=== PATIENT | male | born 1985 | race Caucasian/White ===

== ENCOUNTER → 2022-02-04 12:11 | Outpatient (CLI) | payer OTHER, SELFPAY ==
--- NOTE | ~2022-02-04 | MR_ITS ---
EXAMINATION: MR lumbar spine wo con DATE: 02/04/2022 13:00 INDICATION: Mid back pain. Scoliosis of spine. TECHNIQUE: Magnetic resonance imaging (MRI) of the lumbar spine was performed without intravenous con trast. Sequences included sagittal T2-weighted FSE, sagittal T2-weighted FS FSE, sagittal T1-weighted FSE, and axial T2-weighted FSE. COMPARISON: None FINDINGS: There is 8 degrees levocurvature of thoracolumbar spine. There are Schmorl's nodes at L2-L3 . There is mildly decreased disc height at L2-L3 and L4-L5. The distal spinal cord signal intensity i s normal. The conus medullaris is at T12-L1. The following disc levels are specifically discussed: L1-L2: The disc does not extend beyond the endplate margin. There is no facet joint osteoarthritis. T here is no neural foraminal stenosis. There is no central canal stenosis. L2-L3: The disc is mildly bulging. There is no facet joint osteoarthritis. There is no neural foramin al stenosis. There is mild central canal stenosis. L3-L4: The disc does not extend beyond the endplate margin. There is no facet joint osteoarthritis. T here is no neural foraminal stenosis. There is no central canal stenosis. L4-L5: The disc is bulging and has an annular fissure. There is no facet joint osteoarthritis. There is mild bilateral neural foraminal stenosis. There is mild central canal stenosis. L5-S1: The disc does not extend beyond the endplate margin. There is mild left facet joint osteoarthr itis. There is no neural foraminal stenosis. There is no central canal stenosis. IMPRESSION: 1. Mild lumbar spondylosis. Reviewed, dictated and finalized at location A. IMPRESSION: 1. Mild lumbar spondylosis.
--- NOTE | ~2022-02-04 | MR_ITS ---
EXAMINATION: MR thoracic spine wo con DATE: 02/04/2022 12:54 INDICATION: Scoliosis of thoracic spine. Mid back pain. TECHNIQUE: Magnetic resonance imaging (MRI) of the thoracic spine was performed without intravenous c ontrast. Sagittal localizer T1-weighted FSE of the cervical spine was obtained. Thoracic spine sequen idalia included sagittal T2-weighted FSE, sagittal T1-weighted FSE, sagittal T2-weighted FS FSE, and axi al T2-weighted FSE. COMPARISON: None FINDINGS: There is 20 degrees dextroscoliosis of thoracic spine. There is mild chronic anterior wedgi ng of T11 and T12 vertebral bodies, likely physiologic. Intervertebral disc heights are normal. The e ndplates do not extend beyond the endplate margins. There is multilevel mild facet joint osteoarthrit is. At T9-T10 on the left, there is severe facet joint osteoarthritis and mild neural foraminal steno sis. There is no central canal stenosis. At T4, there is focal enlargement of the spinal cord with in creased T2-weighted signal intensity. The abnormality spans 2.4 cm craniocaudal and expands the cord to 13 x 11 mm transverse. IMPRESSION: 1. Focal enlargement and abnormal signal intensity in the spinal cord at T4, which may be myelomalaci a with syrinx. Thoracic spine MRI without and with contrast is recommended to exclude neoplasm. 2. Thoracic dextroscoliosis. Reviewed, dictated and finalized at location A. IMPRESSION: 1. Focal enlargement and abnormal signal intensity in the spinal cord at T4, wh ich may be myelomalacia with syrinx. Thoracic spine MRI without and with contra st is recommended to exclude neoplasm. 2. Thoracic dextroscoliosis.
== END ==
PROVIDERS: PCP Nurse Practitioner Adult Health; Visit Provider Nurse Practitioner Adult Health
DX: M41.34 Thoracogenic scoliosis, thoracic region (principal); M47.896 Other spondylosis, lumbar region
CPT/HCPCS: 72146; 72148

== ENCOUNTER → 2022-02-19 13:50 | Outpatient (CLI) | payer OTHER, SELFPAY ==
--- NOTE | ~2022-02-19 | MR_ITS ---
EXAMINATION: MR thoracic spine wo/w con DATE: 02/19/2022 14:46 INDICATION: Scoliosis of thoracic spine. Back pain. TECHNIQUE: Magnetic resonance imaging (MRI) of the thoracic spine was performed without and with 14 m L MultiHance intravenous contrast. Sequences included sagittal and axial T2-weighted FSE, sagittal T2 -weighted FS FSE, and sagittal and axial T1-weighted FSE. Postcontrast sequences included sagittal an d axial T1-weighted FS FSE. COMPARISON: Thoracic spine MRI 02/04/2022 FINDINGS: There is 17 degrees dextroscoliosis of thoracic spine. There is mild chronic anterior wedgi ng of T11 and T12 vertebral bodies, likely physiologic. Intervertebral disc heights are normal. There is multilevel mild facet joint osteoarthritis. At T9-T10 on the left, there is severe facet joint os teoarthritis and mild neural foraminal stenosis. No central canal stenosis. At T4, there is focal enl argement of the spinal cord with increased T2-weighted signal intensity. The abnormality spans 2.4 cm craniocaudal and expands the cord to 13 x 11 mm transverse. There is thin contrast enhancement at th e margin of a cyst-like portion of the abnormality. IMPRESSION: 1. Focal enlargement and abnormal signal intensity in the spinal cord at T4 with thin contrast enhanc ement at the margin of a cyst-like portion of the abnormality. This finding is most likely myelomalac ia with syrinx. Neoplasm cannot be excluded. Reviewed, dictated and finalized at location A. IMPRESSION: 1. Focal enlargement and abnormal signal intensity in the spinal cord at T4 wit h thin contrast enhancement at the margin of a cyst-like portion of the abnorma lity. This finding is most likely myelomalacia with syrinx. Neoplasm cannot be excluded.
[2022-02-19 14:15] LABS: Estimated Glomerular Filt Rate 54
== END ==
PROVIDERS: PCP Nurse Practitioner Adult Health; Visit Provider Nurse Practitioner Adult Health
DX: M41.34 Thoracogenic scoliosis, thoracic region (principal); R93.89 Abnormal findings on diagnostic imaging of other specified body structures
CPT/HCPCS: 72157; A9577

== ENCOUNTER → 2022-04-27 13:38 | Outpatient (CLI) | payer OTHER, SELFPAY ==
--- NOTE | ~2022-04-27 | MR_ITS ---
EXAMINATION: MR cervical spine wo/w con DATE: 04/27/2022 14:48 INDICATION: Mass of spine. TECHNIQUE: Magnetic resonance imaging (MRI) of the cervical spine was performed without and with 14 m L MultiHance intravenous contrast. COMPARISON: Thoracic spine MRI 02/19/2022 FINDINGS: There is 12 degrees levoscoliosis of cervicothoracic spine. Vertebral body heights are norm al. There is mildly decreased disc height at C3-C4 and C4-C5. The spinal cord signal intensity is nor mal in cervical spine. Partially visualized is focal enlargement and increased T2-weighted signal int ensity of the spinal cord at T4. Partially visualized is crescent-shaped contrast enhancement in this area. The following disc levels are specifically discussed: C2-C3: The disc does not extend beyond the endplate margin. There is no uncovertebral joint osteoarth ritis. There is no facet joint osteoarthritis. There is no neural foraminal stenosis. There is no yehuda tral canal stenosis. C3-C4: The disc is bulging. There is mild right uncovertebral joint osteoarthritis. There is mild lizzie ateral facet joint osteoarthritis. There is mild right neural foraminal stenosis. There is mild centr al canal stenosis. C4-C5: There is a central protrusion. There is no uncovertebral joint osteoarthritis. There is mild r ight facet joint osteoarthritis. There is no neural foraminal stenosis. There is no central canal justin nosis. C5-C6: There is a central protrusion. There is mild left uncovertebral joint osteoarthritis. There is mild bilateral facet joint osteoarthritis. There is no neural foraminal stenosis. There is no centra l canal stenosis. C6-C7: There is a central protrusion. There is mild bilateral uncovertebral joint osteoarthritis. The re is mild right facet joint osteoarthritis. There is no neural foraminal stenosis. There is no centr al canal stenosis. C7-T1: The disc does not extend beyond the endplate margin. There is no uncovertebral joint osteoarth ritis. There is no facet joint osteoarthritis. There is no neural foraminal stenosis. There is no yehuda tral canal stenosis. IMPRESSION: 1. Mild cervical spondylosis. 2. Partially visualized expansile enhancing mass of the spinal cord at T4. The differential diagnosis includes myelomalacia with syrinx and neoplasm. Reviewed, dictated and finalized at location A.
--- NOTE | ~2022-04-27 | MR_ITS ---
EXAMINATION: MR lumbar spine wo/w con DATE: 04/27/2022 14:49 INDICATION: Mass of spine. TECHNIQUE: Magnetic resonance imaging (MRI) of the lumbar spine was performed without and with 14 mL MultiHance intravenous contrast. COMPARISON: Lumbar spine MRI 02/04/2022 FINDINGS: There is 5 degrees levocurvature of thoracic lumbar spine. Vertebral body heights are sabiha l. There is mildly decreased disc height at L4-L5. The distal spinal cord signal intensity is normal. The conus medullaris is at T12-L1. The following disc levels are specifically discussed: L1-L2: The disc does not extend beyond the endplate margin. There is no facet joint osteoarthritis. T here is no neural foraminal stenosis. There is no central canal stenosis. L2-L3: The disc does not extend beyond the endplate margin. There is no facet joint osteoarthritis. T here is no neural foraminal stenosis. There is no central canal stenosis. L3-L4: The disc does not extend beyond the endplate margin. There is no facet joint osteoarthritis. T here is no neural foraminal stenosis. There is no central canal stenosis. L4-L5: The disc is bulging with superimposed left subarticular and foraminal zone extrusion with mass effect on left L5 nerve root in left lateral recess. There is mild bilateral facet joint osteoarthri tis. There is mild right and moderate left neural foraminal stenosis. There is mild central canal justin nosis at the midline. There is severe stenosis of left lateral recess. L5-S1: The disc does not extend beyond the endplate margin. There is mild bilateral facet joint osteo arthritis. There is no neural foraminal stenosis. There is no central canal stenosis. IMPRESSION: 1. Worsened extrusion at L4-L5 with mass effect on left L5 nerve root. Reviewed, dictated and finalized at location A.
[2022-04-27 13:59] LABS: Estimated Glomerular Filt Rate > 60
== END ==
PROVIDERS: PCP Nurse Practitioner Adult Health; Visit Provider Nurse Practitioner Gerontology
DX: M89.8X8 Other specified disorders of bone, other site (principal); M51.26 Other intervertebral disc displacement, lumbar region; M47.892 Other spondylosis, cervical region
CPT/HCPCS: 72156; 72158; A9577

== ENCOUNTER 2022-05-20 12:28 | Emergency (ER) | payer OTHER, SELFPAY ==
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
--- NOTE | ~2022-05-20 | XR_ITS ---
EXAMINATION: XR ribs LT 2V DATE: 05/20/2022 13:19 INDICATION: Left lower rib pain. TECHNIQUE: 2 views of the left ribs on 3 radiographs were obtained. COMPARISON: None. FINDINGS: There is no left-sided pneumonia, pleural effusion, or pneumothorax. The heart size is norm al. There are fractures of left anterior ninth and 10th ribs. IMPRESSION: 1. Fractures of left ninth and 10th ribs. Reviewed, dictated and finalized at location A.
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
[2022-05-20 13:55] LABS: Basophils Absolute Auto 0.1 K/mm3 (0.0-0.1); Basophils Percent Auto 0.8 % (0.2-1.2); Eosinophils Absolute Auto 0.3 K/mm3 (0-0.3); Eosinophils Percent Auto 4.5 % (0-4.4); Hematocrit 42.9 % (42.0-52.0); Hemoglobin 14.2 g/dL (14.0-18.0); Immature Granulocyte Absolute 0.03 K/mm3 (0.00-0.031); Immature Granulocyte Percent A 0.4 % (0-0.5); Lymphocytes Absolute Auto 1.88 K/mm3 (0.9-3.2); Lymphocytes Percent Auto 25.5 % (18.3-44.2); Mean Corpuscular HGB Conc 33.1 g/dl (32-36); Mean Corpuscular Hemoglobin 29.8 pg (26-34); Mean Corpuscular Volume 89.9 fl (80-100); Mean Platelet Volume 9.8 fl (7.4-10.4); Monocytes Absolute Auto 0.9 K/mm3 (0.1-0.6); Monocytes Percent Auto 11.9 % (2.6-8.5); Neutrophils Absolute Auto 4.2 K/mm3 (1.3-6.7); Neutrophils Percent Auto 56.9 % (45.5-73.1); Platelet Count Result 216 k/mm3 (150-375); Red Blood Count 4.77 M/mm3 (4.6-6.20); Red Cell Distribution Width 11.9 % (11.5-14.5); White Blood Count 7.4 K/mm3 (4.5-10.0)
[2022-05-20 14:33] LABS: Alanine Aminotransferase 39 U/L (6-50); Albumin Level 4.5 g/dL (3.5-5.1); Alkaline Phosphatase 36 U/L (38-126); Anion Gap 9 mmol/L (8-16); Aspartate Amino Transferase 43 U/L (17-59); Bilirubin,Total 0.4 mg/dL (0.2-1.3); Blood Urea Nitrogen 20 mg/dL (9-20); Calcium 9.7 mg/dL (8.4-10.2); Carbon Dioxide 25 mmol/L (22-30); Chloride 106 mmol/L (98-107); Estimated CRCL calculation 0 ml/min; Estimated Glomerular Filt Rate > 60; Glucose 104 mg/dL (65-110); Potassium 3.9 mmol/L (3.4-5.0); Sodium 140 mmol/L (137-145)
--- NOTE | 2022-05-20 14:56 | PC.NURSE ---
pt. to ct
[2022-05-20 15:45] VITALS: BP 136/87; PULSE 89; RESP 19; O2SAT 97
== END 2022-05-20 15:45 | disposition home or self-care (01) ==
PROVIDERS: Emergency Provider Nurse Practitioner Family; PCP Nurse Practitioner Adult Health
DX: S22.42XA Multiple fractures of ribs, left side, initial encounter for closed fracture (principal); S60.222A Contusion of left hand, initial encounter; R10.9 Unspecified abdominal pain; V89.2XXA Person injured in unspecified motor-vehicle accident, traffic, initial encounter
CPT/HCPCS: 36415; 71100; 71260; 73110; 73130; 74177; 80053; 85025; 99284; Q9967

== ENCOUNTER → 2023-02-09 09:45 | Outpatient (CLI) | payer OTHER, SELFPAY ==
--- NOTE | ~2023-02-09 | MR_ITS ---
EXAMINATION: MR thoracic spine wo/w con DATE: 02/09/2023 10:37 INDICATION: Spinal cord lesion. TECHNIQUE: Magnetic resonance imaging (MRI) of the thoracic spine was performed without and with 14 m L MultiHance intravenous contrast. COMPARISON: Thoracic spine MRI 02/19/2022 FINDINGS: There is 14 degrees dextroscoliosis of thoracic spine. Vertebral body heights and intervert ebral disc heights are normal. There is multilevel mild to moderate facet joint osteoarthritis. There are right foraminal extrusions at T8-T9 and T10-T11 with mild neural foraminal stenosis. There are l eft foraminal extrusions at T6-T7 and T7-T8 with mild neural foraminal stenosis. No central canal justin nosis. At T4, there is focal enlargement of the spinal cord with increased T2-weighted signal intensi ty. No contrast enhancement. The abnormality spans 2.4 cm craniocaudal and expands the cord to 13 x 1 0 mm transverse. IMPRESSION: 1. Focal enlargement and abnormal signal intensity in the spinal cord at T4 without change in size. T his finding is most likely myelomalacia with syrinx. Reviewed, dictated and finalized at location A. IMPRESSION: 1. Focal enlargement and abnormal signal intensity in the spinal cord at T4 wit hout change in size. This finding is most likely myelomalacia with syrinx.
== END ==
PROVIDERS: PCP Neurological Surgery; Visit Provider Neurological Surgery
DX: G95.9 Disease of spinal cord, unspecified (principal)
CPT/HCPCS: 72157; A9577

== ENCOUNTER → 2023-10-13 08:40 | Outpatient (CLI) | payer OTHER, SELFPAY ==
--- NOTE | ~2023-10-13 | MR_ITS ---
MRI of the thoracic spine Clinical History: Spinal cord lesion Technique: Axial T2-weighted and gradient images, and sagittal T1-weighted, T2-weighted, and STIR prashant ges were acquired. Following intravenous administration of 15 cc MultiHance gadolinium, T1-weighted f at-sat imaging was performed in the axial and sagittal planes. COMPARISON: 02/09/2023 Findings: There is no fracture or subluxation of the thoracic spine. Vertebral bodies maintain normal height and alignment. No suspicious bone marrow signal abnormality seen. No significant disc bulge or herniation identified. No spinal canal stenosis or cord compression iden tified. Again identified is an expansile area of the spinal cord at the T4 level, with prominent T2 hyperinte nsity, focal central T1 hypointensity, but no postcontrast enhancement. Paravertebral soft tissues ar e unremarkable. Impression: Stable cord signal abnormality at T4 level, most compatible with focal myelomalacia and focal syrinx. Reviewed, dictated and finalized at [facility]. PULLER Impression: Stable cord signal abnormality at T4 level, most compatible with focal myelomal acia and focal syrinx.
== END ==
PROVIDERS: PCP Neurological Surgery; Visit Provider Neurological Surgery
DX: G95.9 Disease of spinal cord, unspecified (principal)
CPT/HCPCS: 72157; A9577

== ENCOUNTER 2025-05-04 12:05 | Emergency (ER) | payer OTHER, SELFPAY ==
--- NOTE | ~2025-05-04 | XR_ITS ---
EXAMINATION: XR mandible min 4V DATE: 05/04/2025 14:46 INDICATION: Left-sided jaw pain post trauma TECHNIQUE: Left and right lateral views as well as frontal and open mouth frontal views of the mandib le were obtained COMPARISON: None. FINDINGS: Normal alignment and joint space at the bilateral temporomandibular joints. No fracture. There are a few dental restorations. Mastoid air cells appear well pneumatized. No air-fluid levels within the ma stoids or paranasal sinuses. Nasal septum is midline. IMPRESSION: 1. No acute osseous abnormality. Reviewed, dictated and finalized at location A.
--- OUTSIDE RECORDS SUMMARY | 2025-05-04 12:11 | XMS_ITS | Referral Summary ---
Author Organization [facility] [place] 8 [facility] Address [address] [place] [address] Care Team Providers Care Artistic Director Name Role Phone Julianna Daniels NP Primary Care Provider [phone] Encounters Date Type Department Care Team Description 03/29/2025 Results Follow-Up [facility] at [address] [phone] Julianna Daniels NP Thyroid Function [place], Lipid panel, Comprehensive metabolic panel, Additional followed-up results: 3 03/27/2025 9:45 AM CDT - 03/27/2025 11:59 PM CDT [place] [address] Wellness examination; Screening for thyroid disorder; Screening, lipid; Encounter for screening examination for impaired glucose regulation and diabetes mellitus; Screening, anemia, deficiency, iron Discharge Disposition: Discharge to home or self care 03/27/2025 9:45 AM CDT Lab [facility] at [address] [phone] 03/27/2025 9:00 AM CDT Office Visit [facility] at [address] [phone] Julianna Daniels NP BMI 25.0-25.9,adult (Primary Dx); Wellness examination; Gastroesophageal reflux disease without esophagitis; Screening for thyroid disorder; Screening, lipid; Encounter for screening examination for impaired glucose regulation and diabetes mellitus; Screening, anemia, deficiency, iron; Need for hepatitis C screening test; Syrinx of spinal cord (HCC); Encounter for immunization from Last 3 Months Allergies No known active allergies Medications acetaminophen (TYLENOL) 325 mg tablet Take 2 tablets (650 mg total) by mouth every 4 (four) hours as needed for pain 30 tablet 04/26/2022 Active ibuprofen (ADVIL,MOTRIN) 200 mg tab/capIndicatio ns:Pain Take 200 mg by mouth every 6 (six) hours as needed for pain Active multivitamin capsuleIndicatio ns:Vitamin Deficiency Prevention Take 1 capsule by mouth every morning Active omeprazole (PriLOSEC) 40 mg capsuleIndicatio ns:Gastroesophag eal reflux disease without esophagitis Take 1 capsule (40 mg total) by mouth daily 30 capsule 1 03/27/2025 Active Active Problems Problem Noted Date Diagnosed Date Wellness examination 03/27/2025 Assessment & Plan (03/27/2025 12:46 PM CDT): Routine health maintenance objectives discussed and orders placed for any outstanding screening studies. Physical exam performed as above. Routine annual labs obtained and will be reviewed with patient when results available. Encouraged regular physical activity--moderate activity for a total of 150 minutes per week over 3-5 days. Encouraged healthy diet with regular fresh fruits and vegetables limited in processed carbohydrates. Alcohol use - socially Nicotine use - denies Depression screening - negative PHQ Screening Over the past 2 weeks, how often have you been bothered by any of the following problems? Little Interest or Pleasure in Doing Things: Not at all Feeling Down, Depressed, or Hopeless: Not at all PHQ-2 Total Score (If total score is 3 or more points, staff should administer the PHQ-9): 0 Orders: CBC with auto differential; Future Comprehensive metabolic panel; Future Lipid panel; Future Thyroid Function [place]; Future BMI 25.0-25.9,adult 03/27/2025 Assessment & Plan (03/27/2025 12:46 PM CDT): Encouraged regular physical activity--moderate activity for a total of 150 minutes per week over 3-5 days. Encouraged healthy diet with regular fresh fruits and vegetables limited in processed carbohydrates. Gastroesophageal reflux disease without esophagi tis 03/27/2025 Assessment & Plan (03/27/2025 12:46 PM CDT): Orders: omeprazole (PriLOSEC) 40 mg capsule; Take 1 capsule (40 mg total) by mouth daily Syrinx of spinal cord 03/27/2025 Overview (03/27/2025): Calcified. Assessment & Plan (03/27/2025 12:46 PM CDT): Resolved Problems Problem Noted Date Diagnosed Date Resolved Date Headache 04/25/2022 03/27/2025 Unstable angina pectoris 03/11/2022 Mass of spine 03/11/2022 03/27/2025 Scoliosis of thoracic spine 01/21/2022 03/27/2025 Degeneration of lumbar intervertebral disc 01/21/2022 03/27/2025 Lumbar radiculopathy 03/23/2019 025 Immunizations Immunization Administration Dates Next Due DT 05/16/1993,05/19/1988,01/28/1988 ,1987 Hep B, Adolescent or Pediatric 08/19/1998,1997,01/14/1998 MMR 04/20/1994,05/23/1993 OPV 05/16/1992,01/28/1988,1987 Tdap 03/27/2025 Social History Tobacco Use Types Packs/Day Years Used Date Smoking Tobacco: Never Passive Smoke Exposure: Current Smokeless Tobacco: Current Chew Last attempted to quit: 09/2020 Tobacco Cessation:Ready to Q uit: Yes Alcohol Use Standard Drinks/Week Comments Yes 0 (1 standard drink = 0.6 oz pur e alcohol) social AUDIT-C Answer Date Recorded Q1: How often do you have a drink containing alcohol? 4 or more times a week 03/27/2025 Q2: How many drinks containi ng alcohol do you have on a typical day when you are drinking? 1 or 2 Q3: How often do you have si x or more drinks on one occasion? 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 file Not on file Not on file Last Filed Vital Signs Vital Sign Reading Time Taken Comments Blood Pressure 130/90 03/27/2025 9:02 AM CDT Pulse 85 03/27/2025 9:02 AM CDT Temperature 36.4 C (97.5 F) 03/27/2025 9:02 AM CDT Respiratory Rate 16 03/27/2025 9:02 AM CDT Oxygen Saturation 99% 03/27/2025 9:02 AM CDT Inhaled Oxygen Concentration - - Weight 72.6 kg (160 lb) 03/27/2025 9:02 AM CDT Height 167.6 cm (5' 6) 03/27/2025 9:02 AM CDT Body Mass Index 25.82 03/27/2025 9:02 AM CDT Plan of Treatment Not on file Medical Devices Implanted Type Area Prep Room Supervisor Device Identifier Shelf Expiration Date Model / Serial / Lot Corpora Angio-Seal Vip 6fr Closere Device [id number] - [id number] Implanted:Qty: 1 on 08/14/2022 at [facility] Corpora 05/10/2023 [id number] / / [id number] Procedures Procedure Name Priority Date/Time Associated Diagnosis Comments EGFR Routine 03/27/2025 9:45 AM CDT Wellness examination Encounter for screening examination for impaired glucose regulation and diabetes mellitus DIFFERENTIAL AUTO Routine 03/27/2025 9:4 5 AM CDT Wellness examination Screening, anemia, deficiency, iron CBC WITH AUTO DIFFERENTIAL Routine 03/27/2025 9:45 AM CDT Wellness examination Screening, anemia, deficiency, iron COMPREHENSIVE METABOLIC PANEL Routine 03/27/2025 9:45 AM CDT Wellness examination Encounter for screening examination for impaired glucose regulation and diabetes mellitus LIPID PANEL Routine 03/27/2025 9:45 AM CDT Wellness examination Screening, lipid THYROID FUNCTION CASCADE Routine 03/27/2025 9:45 AM CDT Wellness examination Screening for thyroid disorder from Last 3 Months Results * eGFR (03/27/2025 9:45 AM CDT) eGFR >90 >=60 mL/min/1. 73 m2 Comment: Interpretive Data Reference Interval Normal >/= 90 mL/min/1.73m2 Mildly decreased* 60 - 89 mL/min/1.73m2 Mildly to moderately decreased 45 - 59 mL/min/1.73m2 Moderately to severely decreased 30 - 44 mL/min/1.73m2 Severely decreased 15 - 29 mL/min/1.73m2 Kidney Failure < 15 mL/min/1.73m2 *Relative to young adult level Estimated glomerular filtration rate is determined by the 2020 CKD-EPI equation recommended by the National Kidney Foundation (A Unifying Approach to GFR Estimation: Recommendations of the NKF-ASK Task Force on Reassessing the Inclusion of Race in Diagnosing Kidney Disease, JASN 2020). The CKD-EPI equation should not be used for patients with unstable renal function and has not been validated in children and those over 70. Current interpretive data was last reviewed 2021. Blood 03/27/2025 9:45 AM CDT 03/27/2025 9:46 PM CDT us Julianna Daniels NP LAB BLOOD ORDERABLES Final Re sult [facility] NORMAN [address] Department [place] [address] * (ABNORMAL) Differential, auto (03/27/2025 9:45 AM CDT) Neutrophil abs 5.16 1.50 - 6.50 K/cumm Imm gran abs 0.04 0.00 - 0.10 K/cumm [facility] Lymphocyte abs 1.45 0.80 - 3.30 K/cumm [facility] Monocyte abs 0.99(H) 0.20 - 0.80 K/cumm [facility] Eosinophil abs 0.47 0.00 - 0.50 K/cumm [facility] Basophil abs 0.05 0.00 - 0.10 K/cumm [facility] Neutrophil pct 63.2 % [facility] Comment: Interpretive Data Percent cell count reference ranges are not reported, since discordance with absolute values may lead to misinterpretation of CBC data. Current Interpretive Data was last revised on 2018. Imm gran pct 0.5 % [facility] Comment: Interpretive Data Percent cell count reference ranges are not reported, since discordance with absolute values may lead to misinterpretation of CBC data. Current Interpretive Data was last revised on 2018. Lymphocyte pct 17.8 % [facility] Comment: Interpretive Data Percent cell count reference ranges are not reported, since discordance with absolute values may lead to misinterpretation of CBC data. Current Interpretive Data was last revised on 2018. Monocyte pct 12.1 % [facility] Comment: Interpretive Data Percent cell count reference ranges are not reported, since discordance with absolute values may lead to misinterpretation of CBC data. Current Interpretive Data was last revised on 2018. Eosinophil pct 5.8 % [facility] Comment: Interpretive Data Percent cell count reference ranges are not reported, since discordance with absolute values may lead to misinterpretation of CBC data. Current Interpretive Data was last revised on 2018. Basophil pct 0.6 % [facility] Comment: Interpretive Data Percent cell count reference ranges are not reported, since discordance with absolute values may lead to misinterpretation of CBC data. Current Interpretive Data was last revised on 2018. Blood 03/27/2025 9:45 AM CDT 03/27/2025 9:04 PM CDT us Julianna Daniels NP LAB BLOOD ORDERABLES Final Re sult [facility] NORMAN [address] Department [place] [address] * Thyroid Function [place] (03/27/2025 9:45 AM CDT) TSH 1.87 0.30 - 4.20 mcIUnit/mL Blood 03/27/2025 9:45 AM CDT 03/27/2025 9:04 PM CDT Julianna Daniels LABELING ASSOCIATE LAB BLOOD ORDERABLES Final Re sult Performing Organization Address [facility] Co de Phone Number TATIANA NORMAN [address] Department of [place], [place] [id number] * CBC with auto differential (03/27/2025 9:45 AM CDT) WBC 8.16 3.80 - 9.90 K/cumm Hgb 15.6 13.0 - 17.5 g/dL [facility] Hct 48.1 38.9 - 50.3 % [facility] Plt 259 150 - 400 K/cumm [facility] MPV 10.1 9.1 - 12.3 fL [facility] RBC 5.16 4.30 - 5.80 M/cumm [facility] MCV 93.2 81.3 - 96.4 fL [facility] MCH 30.2 27.1 - 33.3 pg [facility] MCHC 32.4 32.3 - 35.7 g/dL [facility] RDW CV 12.6 11.1 - 14.9 % [facility] RDW SD 43.4 35.7 - 48.1 fL [facility] NRBC abs 0.00 0.00 - 0.01 K/cumm [facility] Blood 03/27/2025 9:45 AM CDT 03/27/2025 9:04 PM CDT Julianna Daniels LABELING ASSOCIATE LAB BLOOD ORDERABLES Final Re sult Performing Organization Address City/[facility]/ZIP Co de Phone Number TATIANA NORMAN [address] [place] [address] * Lipid panel (03/27/2025 9:45 AM CDT) Cholesterol 171 30 - 199 mg/dL Comment: Interpretive Data Ages < or = 19 years Acceptable: <170 mg/dL Borderline high: 170-199 mg/dL High: >or= 200 mg/dL Ages > or = 20 years Desirable: <200 mg/dL Borderline high: 200-239 mg/dL High: >or= 240 mg/dL Literature References: 1. Expert Panel on Integrated Guidelines for Cardiovascular Health and Risk Reduction in Children and Adolescents. Pediatrics 2011;128:S213 2. NCEP Expert Panel. Circulation 2004;110:227 Current Interpretive Data was last revised on 2018. Triglycerides 92 <=149 mg/dL [facility] Comment: Interpretive Data Ages < or = 9 years Acceptable: <75 mg/dL Borderline high: 75-99 mg/dL High: >or= 100 mg/dL Ages 10 to 20 years Acceptable: <90 mg/dL Borderline high: 90-129 mg/dL High: >or= 130 mg/dL Ages > or = 20 years Desirable: <150 mg/dL Borderline high: 150-199 mg/dL High: 200-499 mg/dL Very high: >or= 499 mg/dL Literature References: 1. Expert Panel on Integrated Guidelines for Cardiovascular Health and Risk Reduction in Children and Adolescents. Pediatrics 2011;128:S213 2. NCEP Expert Panel. Circulation 2004;110:227 Current Interpretive Data was last revised on 2018. HDL 58 >=40 mg/dL [facility] Comment: Interpretive Data Ages < or = 19 years Acceptable: >45 mg/dL Borderline low: 40-45 mg/dL Low: <40 mg/dL Ages > or = 20 years Desirable: >or= 60 mg/dL Low: <40 mg/dL Literature References: 1. Expert Panel on Integrated Guidelines for Cardiovascular Health and Risk Reduction in Children and Adolescents. Pediatrics 2011;128:S213 2. NCEP Expert Panel. Circulation 2003;110:227 Current Interpretive Data was last revised on 2018. LDL, calculated 96 <=129 mg/dL [facility] Comment: Interpretive Data Ages < or = 19 years Acceptable: <110 mg/dL Borderline high: 110-129 mg/dL High: >or= 130 mg/dL Ages > or = 20 years Optimal: <100 mg/dL Near optimal: 100-129 mg/dL Borderline high: 130-159 mg/dL High: >160 mg/dL Calculated using the Soto LDL-C estimating equation. This equation was implemented on 2024. Prior to this date LDL-C was estimated using the Friedewald equation. Literature References: 1. Expert Panel on Integrated Guidelines for Cardiovascular Health and Risk Reduction in Children and Adolescents. Pediatrics 2011;128:S213 2. NCEP Expert Panel. Circulation 2004;110:227 3. Charles M et al. SIMRAN Cardiol. 2020 February 08;5(5):540-548. doi: 10.1001/jamacardio.2020.0013 Current Interpretive Data was last revised on 2024. Non-HDL Cholesterol 113 mg/dL [facility] Comment: Interpretive Data Ages < or = 19 years Acceptable: <120 mg/dL Borderline high: 120-144 mg/dL High: >145 mg/dL Ages > or = 20 years When triglycerides are >200 mg/dL, Non-HDL cholesterol is a secondary target of therapy with treatment goals that are 30 mg/dL greater than the LDL cholesterol target. Literature References: 1. Expert Panel on Integrated Guidelines for Cardiovascular Health and Risk Reduction in Children and Adolescents. Pediatrics 2011;128:S213 2. NCEP Expert Panel. Circulation 2004;110:227 Current Interpretive Data was last revised on 2018. Chol/HDL ratio 3 [facility] Blood 03/27/2025 9:45 AM CDT 03/27/2025 9:04 PM CDT Narrative [facility] - 03/27/2025 10:27 PM CDT Has the patient been fasting for 8 hours or more?->Yes Julianna Daniels NP LAB BLOOD ORDERABLES Final Re sult [facility] [address] Department [place] [address] * Comprehensive metabolic panel (03/27/2025 9:45 AM CDT) Sodium 137 135 - 145 mmol/L Potassium, pl 4.3 3.3 - 4.9 mmol/L [facility] Chloride 103 97 - 110 mmol/L [facility] CO2 23 22 - 32 mmol/L [facility] Anion gap 11 2 - 15 mmol/L [facility] BUN 17 6 - 25 mg/dL [facility] Creatinine 1.01 0.80 - 1.30 mg/dL [facility] Glucose 93 70 - 199 mg/dL [facility] Comment: Interpretive Data Fasting glucose >/= 126 mg/dl is diagnostic for diabetes. Fasting is defined as no caloric intake for at least 8 hours. Fasting glucose between 100 mg/dl to 125 mg/dl is diagnostic of prediabetes. In a patient with classic symptoms of hyperglycemia or hyperglycemic crisis, a random glucose >/= 200 mg/dl is diagnostic for diabetes. In the absence of unequivocal hyperglycemia, results should be confirmed by repeat testing. The classification and Diagnosis of Diabetes Diabetes Care 202; 46: S19-S40. Current interpretive data was last revised 2022. Calcium 9.7 8.5 - 10.3 mg/dL [facility] Bilirubin, total 0.3 0.1 - 1.2 mg/dL [facility] Protein, pl 7.7 6.5 - 8.5 g/dL [facility] Albumin 4.5 3.5 - 5.0 g/dL [facility] Alk phos 43 40 - 130 Units/L [facility] ALT 24 7 - 55 Units/L [facility] AST 34 10 - 50 Units/L [facility] Blood 03/27/2025 9:45 AM CDT 03/27/2025 9:04 PM CDT Julianna Daniels NP LAB BLOOD ORDERABLES Final Re sult [facility] [address] [address] Department of Laboratories [place] [phone] from Last 3 Months Insurance [facility] CHOICE PLUS [facility] PPO [facility] PPO Advance Directives For more information, please contact: [phone] * Full Code (Latest Code Status on File) Date Activated Date Inactivated Comments 08/14/2022 10:34 AM 08/15/2022 4:50 AM Care Teams Artistic Director Relationship Specialty Start Date End Date Jluianna Daniels NP [address] [place] [address] PCP - General Internal Medicine 03/27/25
--- OUTSIDE RECORDS SUMMARY | 2025-05-04 12:11 | XMS_ITS | Encounter Summary ---
Author Organization [facility] Healthcare Address [address] [place] [address] Care Team Providers Care Artillery Officer Name Role Phone Julianna Daniels NP Primary Care Provider [phone] Encounter Details Date Type Department Care Team (Latest Contact Info) Description 03/29/2025 Results Follow-Up [facility] Care at [address] [phone] Julianna Daniels NP [address] [place] [address] [address] [place] [address] Thyroid Function [place], Lipid panel, Comprehensive metabolic panel, Additional followed-up results: 3 Social History Tobacco Use Types Packs/Day Years Used Date Smoking Tobacco: Never Passive Smoke Exposure: Current Smokeless Tobacco: Current Chew Last attempted to quit: 09/2020 Alcohol Use Standard Drinks/Week Comments Yes 0 [...] on file 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
--- OUTSIDE RECORDS SUMMARY | 2025-05-04 12:11 | XMS_ITS | Clinical Summary ---
Author Organization [facility] Address [address] [place] [address] Care Team Providers Care Bank Secrecy Act Officer Name Role Phone Unavailable Primary Care Provider Unavailabl e Social History Tobacco Use Types Packs/Day Years Used Date Smoking Tobacco: Never Assessed Sex and Gender Information Value Date Recorded Sex Assigned at Not on file Legal Sex Male 8:27 PM CDT Gender Identity Not on file Sexual Orientation Not on file Last Filed Vital Signs Vital Sign Reading Time Taken Comments Blood Pressure 112/56 09/15/2012 5:34 PM RUBBER CURER Pulse 79 09/15/2012 5:34 PM RUBBER CURER Temperature - - Respiratory Rate - - Oxygen Saturation - - Inhaled Oxygen Concentration - - Weight 69.9 kg (154 lb) 09/15/2012 5:34 PM RUBBER CURER Height - - Body Mass Index - - Plan of Treatment Health Maintenance Due Date Last Done Comments Annual Physical 1990 Hepatitis C 2005 DTaP, Tdap and Td Vaccines ( 1 - Tdap) 2006 Hepatitis B Vaccines (1 of 3 - 19+ 3-dose series) 2006 HPV Vaccines (1 - 3-dose SCD M series) 2014 COVID-19 Vaccine (2023-2 5 season) 2024 Meningococcal B Vaccine Aged Out No l onger eligible based on patient's age to complete this topic Meningococcal Vaccine Aged Out No italia madai eligible based on patient's age to complete this topic Pneumococcal Vaccine: Pediat rics (0 to 5 Years) and At-Risk Patients (6 to 49 Years) Aged Out No longer eligible b ased on patient's age to complete this topic RSV Immunizations Under 20 Months Aged Out No longer eligible based on patient's age to complete this topic [place] [address] [place] [id number] [employer]
--- OUTSIDE RECORDS SUMMARY | 2025-05-04 12:11 | XMS_ITS | Clinical Summary ---
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 Name Role Phone Julianna Daniels NP Primary Care Provider [phone] Allergies No known active allergies Medications acetaminophen [...] panel; Future Lipid panel; Future Thyroid Function [place]; Future BMI 25.0-25.9,adult 03/27/2025 Assessment & Plan [...] disc 01/21/2022 03/27/2025 Lumbar radiculopathy 03/23/2019 025 Encounters Date Type Department Care Team Description 03/29/2025 Results Follow-Up [facility] Primary Care at [address] [phone] Julianna Daniels NP Thyroid Function [place], Lipid panel, Comprehensive metabolic panel, Additional followed-up results: 3 03/27/2025 9:45 AM CDT - 03/27/2025 11:59 PM CDT Hospital Encounter [facility] [id number] [place] [id number] Wellness examination; Screening for thyroid disorder; Screening, lipid; Encounter for screening examination for impaired glucose regulation and diabetes mellitus; Screening, anemia, deficiency, iron Discharge Disposition: Discharge to home or self care 03/27/2025 9:45 AM CDT Lab [facility] Medical [facility] Outpatient Lab at [address] [phone] 03/27/2025 9:00 AM CDT Office Visit [facility] Primary Care at [address] [phone] Julianna Daniels, JOANA BMI 25.0-25.9,adult (Primary Dx); Wellness examination; Gastroesophageal reflux disease without esophagitis; Screening for thyroid disorder; Screening, lipid; Encounter for screening examination for impaired glucose regulation and diabetes mellitus; Screening, anemia, deficiency, iron; Need for hepatitis C screening test; Syrinx of spinal cord (HCC); Encounter for immunization from Last 3 Months Immunizations Immunization Administration Dates Next Due DT 05/16/1993,05/19/1988,01/28/1988 ,1987 Hep B, Adolescent or Pediatric 08/19/1998,1997,01/14/1998 MMR 04/20/1994,05/23/1993 OPV 05/16/1992,01/28/1988,1987 Tdap 03/27/2025 Surgical History Surgery Date Site/Laterality Comments MYELOGRAM THORACIC 04/24/2022 N/A x2 Medical History Medical History Date Comments Known health problems: none Scoliosis History of chicken pox Headache 04/25/2022 Unstable angina pectoris (HCC) 03/11/2022 Scoliosis of thoracic spine 01/21/2022 Family History Medical History Relation Name Comments Colon cancer Father Alzheimer's disease Maternal Grandfather Breast cancer Mother Alzheimer's disease Paternal Grandfather Cancer Neg Hx Relation Name Status Comments Father Alive Maternal Grandfather Mother Alive Paternal Grandfather Social History Tobacco Use Types Packs/Day Years [...] on file 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 Gender Identity Not on file Sexual Orientation Not on file 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 Not on file Not on file Not on file Obstetrics History Last Filed Vital Signs Vital Sign Reading [...] 03/27/2025 9:02 AM CDT Plan of Treatment Health Maintenance Due Date Last Done Comments HPV Vaccines (1 - 3-dose SCDM series) 2014 Influenza Vaccine (#1) 2025 Depression Screening 03/27/2026 03/27/2025 Regular Well Visit/Exam 18-64 03/27/2026 03/27/2025 DTaP/Tdap/Td Vaccine (6 - Td or Tdap) 03/27/2035 03/27/2025, 05/16/1993, 05/19/1988, Additional history exists Hepatitis B Screening Completed 08/19/1998 , 02/18/1998, 01/14/1998 Hepatitis C Screening Discontinued Pneumococcal vaccine <65 Aged Out No longer eligible based on patient's age to complete this topic Medical Devices Implanted 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 Shelf Expiration Date Model / Serial / Lot [employer] Angio-Seal Vip 6fr Closere Device [id number] - [id number] Implanted:Qty: 1 on 08/14/2022 at [facility] [employer] 05/10/2023 [id number] / / [id number] Procedures Procedure Name Priority Date/Time Associated Diagnosis [...] NP LAB BLOOD ORDERABLES Final Re sult [facility] [id number] [address] Department of Laboratories [place], [place] [id number] * (ABNORMAL) Differential, auto (03/27/2025 9:45 AM CDT) Neutrophil abs 5.16 1.50 - 6.50 K/cumm Imm gran abs 0.04 0.00 - 0.10 K/cumm [facility] Lymphocyte abs 1.45 0.80 - 3.30 K/cumm [facility] Monocyte abs 0.99(H) 0.20 - 0.80 K/cumm [facility] Eosinophil abs 0.47 0.00 - 0.50 K/cumm [facility] Basophil abs 0.05 0.00 - 0.10 K/cumm [facility] Neutrophil pct 63.2 % [facility] Comment: Interpretive Data Percent cell count reference ranges are not reported, since discordance with absolute values may lead to misinterpretation of CBC data. Current Interpretive Data was last revised on 2018. Imm gran pct 0.5 % [facility] Comment: Interpretive Data Percent cell count reference ranges are not reported, since discordance with absolute values may lead to misinterpretation of CBC data. Current Interpretive Data was last revised on 2018. Lymphocyte pct 17.8 % [facility] Comment: Interpretive Data Percent cell count reference ranges are not reported, since discordance with absolute values may lead to misinterpretation of CBC data. Current Interpretive Data was last revised on 2018. Monocyte pct 12.1 % [facility] Comment: Interpretive Data Percent cell count reference ranges are not reported, since discordance with absolute values may lead to misinterpretation of CBC data. Current Interpretive Data was last revised on 2018. Eosinophil pct 5.8 % [facility] Comment: Interpretive Data Percent cell count reference ranges are not reported, since discordance with absolute values may lead to misinterpretation of CBC data. Current Interpretive Data was last revised on 2018. Basophil pct 0.6 % [facility] Comment: Interpretive Data Percent cell count reference ranges are not reported, since discordance with absolute values may lead to misinterpretation of CBC data. Current Interpretive Data was last revised on 2018. Blood 03/27/2025 9:45 AM CDT 03/27/2025 9:04 PM CDT Julianna Daniels ESTATE PLANNING DIRECTOR LAB BLOOD ORDERABLES Final Re sult Performing Organization Address City/[facility]/ZIP Co de Phone Number [facility] [address] [address] [facility] [place] [address] * Thyroid Function [place] (03/27/2025 9:45 AM CDT) Pathologist [facility] TSH 1.87 0.30 - 4.20 mcIUnit/mL Blood 03/27/2025 9:45 AM CDT 03/27/2025 9:04 PM CDT Julianna Daniels NP LAB BLOOD ORDERABLES Final Re sult Performing Organization Address City/[facility]/ZIP Co de Phone Number [facility] [address] [address] Department [place] [address] * CBC with auto differential (03/27/2025 9:45 AM CDT) WBC 8.16 3.80 - 9.90 K/cumm Hgb 15.6 13.0 - 17.5 g/dL [facility] Hct 48.1 38.9 - 50.3 % [facility] Plt 259 150 - 400 K/cumm [facility] MPV 10.1 9.1 - 12.3 fL [facility] RBC 5.16 4.30 - 5.80 M/cumm [facility] MCV 93.2 81.3 - 96.4 fL [facility] MCH 30.2 27.1 - 33.3 pg [facility] MCHC 32.4 32.3 - 35.7 g/dL [facility] RDW CV 12.6 11.1 - 14.9 % [facility] CH RDW SD 43.4 35.7 - 48.1 fL [facility] NRBC abs 0.00 0.00 - 0.01 K/cumm [facility] Blood 03/27/2025 9:45 AM CDT 03/27/2025 9:04 PM CDT us Julianna Daniels NP LAB BLOOD ORDERABLES Final Re sult [facility] [address] [address] Department [place] [address] * Lipid panel (03/27/2025 9:45 AM CDT) [...] on 2018. HDL 58 >=40 mg/dL [facility] Comment: Interpretive Data Ages < or = [...] 2018. LDL, calculated 96 <=129 mg/dL [facility] Comment: Interpretive Data Ages < or = 19 years Acceptable: <110 mg/dL Borderline high: 110-129 mg/dL High: >or= 130 mg/dL Ages > or = 20 years Optimal: <100 mg/dL Near optimal: 100-129 mg/dL Borderline high: 130-159 mg/dL High: >160 mg/dL Calculated using the Charles LDL-C estimating equation. This equation was implemented on 2024. Prior to this date LDL-C was estimated using the Friedewald equation. Literature References: 1. Expert Panel on Integrated Guidelines for Cardiovascular Health and Risk Reduction in Children and Adolescents. Pediatrics 2011;128:S213 2. NCEP Expert Panel. Circulation 2004;110:227 3. Charles Remy al. SIMRAN Cardiol. 2019February 08;5(5):540-548. doi: 10.1001/jamacardio.2020.0013 Current Interpretive Data was last revised on 2024. Non-HDL Cholesterol 113 mg/dL [facility] Comment: Interpretive Data Ages < or = [...] NP LAB BLOOD ORDERABLES Final Re sult [facility] [address] Department [place] [address] * Comprehensive metabolic panel (03/27/2025 9:45 AM [...] Glucose 93 70 - 199 mg/dL [facility] Comment: Interpretive Data Fasting glucose >/= 126 [...] LAB BLOOD ORDERABLES Final Re sult [facility] [address] [address] [place] [address] from Last 3 Months Insurance [facility] PPO [facility] PPO Advance Directives For more information, please contact: [phone] * Full Code (Latest Code Status on File) Date Activated Date Inactivated Comments 08/14/2022 10:34 AM 08/15/2022 4:50 AM Care Teams 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
--- OUTSIDE RECORDS SUMMARY | 2025-05-04 12:11 | XMS_ITS | Data Portability ---
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 Plan of Treatment Reminders Order Date Submit Date Provider Last Modified By Organization Details Last Modified Time Details Appointments None recorded. Lab lipid panel, serum 023 023 [employer] [facility], [address] [place], [address], 3 16:17:07 CMP, serum or plasma 023 023 [employer] [facility], [address] [place], [address], 3 16:17:10 testoster one, total, serum 023 023 [employer] [facility], [address] [place], [address], 3 16:17:16 vitamin B12 + folate, serum or blood 023 023 [employer] [facility], [address] [place], [address], 3 16:17:13 TSH + free T4, serum 023 023 [employer] [facility], [address] [place], [address], 3 16:17:09 CBC w/ auto diff 023 023 [place] [employer] [facility], [address], [place], [address], 3 16:17:12 vitamin D, 25-hydrox y, total, serum 023 023 [place] [employer] [facility], [address], [place], [address], 3 16:17:14 Referral None recorded. Procedures None recorded. Surgeries None recorded. Imaging None recorded. Medication Orders None recorded. Patient TargetsNo targets recorded. Patient InstructionsNo instructions recorded. Reason for Referral None Reported. Results Created Date Observation Date Name Description Value Unit Range Abnormal Flag Note LastModifiedBy Organization Detail LastModifiedTime 08/13/2008/17/2023 LIPID PANEL , STAND JAGDEEP cholesterol, total 155 mg/dL <200 normal Not Available [address] [place], [address], 08/17/2023 16:17:07 08/13/20 23 08/17/2023 LIPID PANEL , STAND JAGDEEP HDL cholesterol 65 mg/dL > or = 40 normal Not Available [address] [place], [address], 08/17/2023 16:17:07 08/13/20 23 08/17/2023 LIPID PANEL , STAND JAGDEEP triglyceride s 53 mg/dL <150 normal Not Available [address] [address] [place], [address], 08/17/2023 16:17:07 08/13/20 23 08/17/2023 LIPID PANEL , STAND JAGDEEP LDL-choleste rol 77 mg/dL _(junior c) normal Refer ence range : <100 Robbin able range <100 mg/dL for prima ry preve ntion ; <70 mg/dL for patie nts with CHD or diabe tic patie nts with > or = 2 CHD risk facto rs. LDL-C is now calcu lated using the Enedelia n-Hop kins coralu skye n, which is a valid ated novel hortencia christina than the Fried shahnaz ghadaat ion in the estim ation of LDL-C . Enedelia hernandez SS et al. SIMRAN. 2013; 310(1 9): 2061- 2068 (http ://ed ucati on.Qu estSeek & Adore. com/f aq/FA Q164) Not Available [facility] [address] [address] [place], [address], 08/17/2023 16:17:07 08/13/20 23 08/17/2023 LIPID PANEL , STAND JAGDEEP chol/HDLC ratio 2.4 (calc ) <5.0 normal Not Available [address] [place], [address], 08/17/2023 16:17:07 08/13/20 23 08/17/2023 LIPID PANEL , STAND JAGDEEP non HDL cholesterol 90 mg/dL _(junior c) <130 normal For patie nts with diabe beverly plus 1 major ASCVD risk facto r, treat ing to a non-H DL-C goal of <100 mg/dL (LDL- C of <70 mg/dL ) is consi anthony meeks optio n. Not Available [facility] [address] [address] [place], [address], 08/17/2023 16:17:07 08/13/20 23 08/17/2023 TSH+F REE T4 TSH 0.70 mIU/L 0.40-4 .50 normal Not Available [facility] [address] [address] [place], [address], 08/17/2023 16:17:08 08/13/20 23 08/17/2023 TSH+F REE T4 T4, free 1.1 NG/dL 0.8-1. 8 normal Not Available [facility] [address] [address] [place], [address], 08/17/2023 16:17:08 08/13/20 23 08/17/2023 COMPR EHENS DIANELYS METAB OLIC PANEL glucose 86 mg/dL 65-99 normal Fasti ng refer ence inter jose Not Available [address] [place], [address], 08/17/2023 16:17:10 08/13/20 23 08/17/2023 COMPR EHENS DIANELYS METAB OLIC PANEL urea nitrogen (BUN) 14 mg/dL 7-25 normal Not Available [facility] [address], [address], 08/17/2023 16:17:10 08/13/20 23 08/17/2023 COMPR EHENS DIANELYS METAB OLIC PANEL creatinine 1.01 mg/dL 0.60-1 .26 normal Not Available [address], [address], 08/17/2023 16:17:10 08/13/20 23 08/17/2023 COMPR EHENS DIANELYS METAB OLIC PANEL eGFR 99 mL/mi n/1.7 3m2 > or = 60 normal Not Available [address], [address], 08/17/2023 16:17:10 08/13/20 23 08/17/2023 COMPR EHENS DIANELYS METAB OLIC PANEL BUN/creatini ne ratio SEE NOTE: (calc ) 6-22 Not Repor yaya: BUN and Creat inine are withi n refer ence range . Not Available [address], [address], 08/17/2023 16:17:10 08/13/20 23 08/17/2023 COMPR EHENS DIANELYS METAB OLIC PANEL sodium 138 mmol/ L 135-14 6 normal Not Available [address], [address], 08/17/2023 16:17:10 08/13/20 23 08/17/2023 COMPR EHENS DIANELYS METAB OLIC PANEL potassium 4.6 mmol/ L 3.5-5. 3 normal Not Available [address], [address], 08/17/2023 16:17:10 08/13/20 23 08/17/2023 COMPR EHENS DIANELYS METAB OLIC PANEL chloride 101 mmol/ L 98-110 normal Not Available [address], [address], 08/17/2023 16:17:10 08/13/20 23 08/17/2023 COMPR EHENS DIANELYS METAB OLIC PANEL carbon dioxide 28 mmol/ L 20-32 normal Not Available [address], [address], 08/17/2023 16:17:10 08/13/20 23 08/17/2023 COMPR EHENS DIANELYS METAB OLIC PANEL calcium 10.0 mg/dL 8.6-10 .3 normal Not Available [address], [address], 08/17/2023 16:17:10 08/13/20 23 08/17/2023 COMPR EHENS DIANELYS METAB OLIC PANEL protein, total 7.8 g/dL 6.1-8. 1 normal Not Available [address], [address], 08/17/2023 16:17:10 08/13/20 23 08/17/2023 COMPR EHENS DIANELYS METAB OLIC PANEL albumin 4.8 g/dL 3.6-5. 1 normal Not Available [address], [address], 08/17/2023 16:17:10 08/13/20 23 08/17/2023 COMPR EHENS DIANELYS METAB OLIC PANEL globulin 3.0 g/dL_ (calc ) 1.9-3. 7 normal Not Available [address], [address], 08/17/2023 16:17:10 08/13/20 23 08/17/2023 COMPR EHENS DIANELYS METAB OLIC PANEL albumin/glob ulin ratio 1.6 (calc ) 1.0-2. 5 normal Not Available [address], [address], 08/17/2023 16:17:10 08/13/20 23 08/17/2023 COMPR EHENS DIANELYS METAB OLIC PANEL bilirubin, total 1.1 mg/dL 0.2-1. 2 normal Not Available [address], [address], 08/17/2023 16:17:10 08/13/20 23 08/17/2023 COMPR EHENS DIANELYS METAB OLIC PANEL alkaline phosphatase 49 U/L 36-130 normal Not Available [address], [address], 08/17/2023 16:17:10 08/13/20 23 08/17/2023 COMPR EHENS DIANELYS METAB OLIC PANEL AST 22 U/L 10-40 normal Not Available [address], [address], 08/17/2023 16:17:10 08/13/20 23 08/17/2023 COMPR EHENS DIANELYS METAB OLIC PANEL ALT 16 U/L 9-46 normal Not Available [address], [address], 08/17/2023 16:17:10 08/13/20 23 08/17/2023 CBC (INCL UDES DIFF/ PLT) white blood cell count 9.7 thous and/u L 3.8-10 .8 normal Not Available [address], [address], 08/17/2023 16:17:11 11/03/20 23 08/17/2023 CBC (INCL UDES DIFF/ PLT) red blood cell count 4.91 ryan on/uL 4.20-5 .80 normal Not Available [address], [address], 08/17/2023 16:17:11 08/13/20 23 08/17/2023 CBC (INCL UDES DIFF/ PLT) hemoglobin 14.8 g/dL 13.2-1 7.1 normal Not Available [address], [address], 08/17/2023 16:17:11 08/13/20 23 08/17/2023 CBC (INCL UDES DIFF/ PLT) hematocrit 44.9 % 38.5-5 0.0 normal Not Available [address], [address], 08/17/2023 16:17:11 08/13/20 23 08/17/2023 CBC (INCL UDES DIFF/ PLT) MCV 91.4 fL 80.0-1 00.0 normal Not Available [address], [address], 08/17/2023 16:17:11 08/13/20 23 08/17/2023 CBC (INCL UDES DIFF/ PLT) MCH 30.1 pg 27.0-3 3.0 normal Not Available [address], [address], 08/17/2023 16:17:11 08/13/20 23 08/17/2023 CBC (INCL UDES DIFF/ PLT) MCHC 33.0 g/dL 32.0-3 6.0 normal Not Available [address], [address], 08/17/2023 16:17:11 08/13/20 23 08/17/2023 CBC (INCL UDES DIFF/ PLT) RDW 12.1 % 11.0-1 5.0 normal Not Available [address], [address], 08/17/2023 16:17:11 08/13/20 23 08/17/2023 CBC (INCL UDES DIFF/ PLT) platelet count 242 thous and/u L 140-40 0 normal Not Available [address], [address], 08/17/2023 16:17:11 08/13/20 23 08/17/2023 CBC (INCL UDES DIFF/ PLT) MPV 10.3 fL 7.5-12 .5 normal Not Available [address], [address], 08/17/2023 16:17:11 08/13/20 23 08/17/2023 CBC (INCL UDES DIFF/ PLT) absolute neutrophils 7324 cells /uL 1500-7 800 normal Not Available [address], [address], 08/17/2023 16:17:11 08/13/20 23 08/17/2023 CBC (INCL UDES DIFF/ PLT) absolute lymphocytes 1125 cells /uL 850-39 00 normal Not Available [address], [address], 08/17/2023 16:17:11 08/13/20 23 08/17/2023 CBC (INCL UDES DIFF/ PLT) absolute monocytes 931 cells /uL 200-95 0 normal Not Available [address], [address], 08/17/2023 16:17:11 08/13/20 23 08/17/2023 CBC (INCL UDES DIFF/ PLT) absolute eosinophils 281 cells /uL 15-500 normal Not Available [address], [address], 08/17/2023 16:17:11 08/13/20 23 08/17/2023 CBC (INCL UDES DIFF/ PLT) absolute basophils 39 cells /uL 0-200 normal Not Available [address], [address], 08/17/2023 16:17:11 08/13/20 23 08/17/2023 CBC (INCL UDES DIFF/ PLT) neutrophils 75.5 % normal Not Available [address], [address], 08/17/2023 16:17:11 08/13/20 23 08/17/2023 CBC (INCL UDES DIFF/ PLT) lymphocytes 11.6 % normal Not Available [address], [address], 08/17/2023 16:17:11 08/13/20 23 08/17/2023 CBC (INCL UDES DIFF/ PLT) monocytes 9.6 % normal Not Available [address], [address], 08/17/2023 16:17:11 08/13/20 23 08/17/2023 CBC (INCL UDES DIFF/ PLT) eosinophils 2.9 % normal Not Available [address], [address], 08/17/2023 16:17:11 08/13/20 23 08/17/2023 CBC (INCL UDES DIFF/ PLT) basophils 0.4 % normal Not Available [address], [address], 08/17/2023 16:17:11 08/13/20 23 08/17/2023 VITAM IN B12/F OLATE , SERUM PANEL vitamin B12 741 pg/mL 200-11 00 normal Not Available [address], [address], 08/17/2023 16:17:13 08/13/20 23 08/17/2023 VITAM IN B12/F OLATE , SERUM PANEL folate, serum 15.6 NG/mL normal Refer ence Range Low: <3.4 Borde rline : 3.4-5 .4 Carol l: >5.4 Not Available [address] [address] [place], [address], 08/17/2023 16:17:13 08/13/20 23 08/17/2023 VITAM IN D,25- OH,TO AMANDA,I A vitamin D,25-oh,tota l,ia 41 NG/mL 30-100 normal Vitam in D Statu s 25-OH Vitam in D: Defic iency : <20 ng/mL Insuf ficie ncy: 20 - 29 ng/mL Optim al: > or = 30 ng/mL For 25-OH Vitam in D testi ng on patie nts on D2-martini pplem entat ion and patie nts for whom quant itati on of D2 and D3 fract ions is requi red, the [employer] Assur eD(TM ) 25-OH VIT D, (D2,D 3), LC/MS /MS is recom rosalind d: order code 68091 (azam ents >2yrs ). See Note 1 Note 1 For addit ional infor nicolle lynn e refer to http: //keya Miguel stDia gnost ics.c om/fa q/FAQ 199 (This link is being provi ded for inforaad coyle/ educa tyra l purpo ses only. ) Not Available [facility] [address] [address] [address] , [place], [address], 08/17/2023 16:17:14 08/13/20 23 08/17/2023 TESTO STERO NE, TOTAL , MS testosterone , total, MS 440 NG/dL 250-11 00 For addit ional infor nicolle lynn e refer to https ://ed ucati on.qu gualberto Retrofit/f aq/To Jose A lopez LCMSM S (This link is being provi ded for infor matio nal/e ducat ional purpo ses only. ) (Note ) This test was devel oped and its rl tical perfo rmanc e marie cteri stics have been deter mined by [employer]. It has not been clear ed or appro lopez by the FDA. This assay has been valid ated pursu ant to the CLIA regul ation s and is used for clini junior purpo ses. MDF med fusio n [address] [facility] [address] [place] [address] [phone] Paul cano MD Not Available [facility] [address] [place], [address], 08/17/2023 16:17:15 12/25/19 21 12/24/2020 XR, shoul karen, 2 or more view No observ ation record ed. [id number] [facility] (Imaging) [address] [place], [address], 12/09/2022 21:02:05 12/25/19 21 XR, shoul karen, 2 or more view [facility] [address] [place] [address] Bertha nunes Name: CRISTOFER BRADFORD ion #: [id number] Sex: M : 1984 8 Locati on: RA2 Attend ing Physic flora: SHARLENE CHAPARRO [facility] Physic flora: SHARLENE CHAPARRO Exam Date: 021 11:31 AM Exam Name: XR SHOULD ER LT 2V+ Admitt ing Diagno sis(es ): RADIOL OGY REPORT - FINAL EXAM: XR SHOULD ER LT 2V+ HISTOR Y: pain in left should er COMPAR FRANKIE: None. TECHNI QUE: Four views of the left should er were perfor med. FINDIN GS: No acute fractu re or disloc ation are identi fied about the left should er. No signif icant degene rative change s or loss of subacr omial space. IMPRES ANTHONY: Unrema rkable radiog raphs of the left should er. Page 1 of 2 [facility] Bertha nunes Name: CRISTOFER BRADFORD Access ion #: [id number] Sex: M : 1984 8 Exam Date: 11:31 AM Exam Name: XR SHOULD ER LT 2V+ Admitt ing Diagno sis(es ): Create d and electr onical ly signed by: Jayy Garcia ch, DO Signed Date: 12:11 PM (CT) Dictat ed by: Jayy Garcia ch, DO DD: 12:11 PM (CT) DT: 12:11 PM (CT) Page 2 of 2 [id number] [facility] (Im[facility]) [address] [place], [address], 12/09/2022 21:02:05 12/19/19 22 XR, lumbo sacra l spine , 4 or more view [facility] [address] [place] [address] [phone] Bertha nunes Name: CRISTOFER BRADFORD Access ion #: [id number] Sex: M : 1984 4 Locati on: RA2 Attend ing Physic flora: [facility] Physic flora: SHARLENE CHAPARRO Exam Date: 1:20 PM Exam Name: XR L SPINE 4V+ Admitt ing Diagno sis(es ): RADIOL OGY REPORT - FINAL EXAM: XR L SPINE 4V+ HISTOR Y: back pain 36-yea r-old male with low back pain, no known injury . COMPAR FRANKIE: Radiog raphs dated 2018. TECHNI QUE: Five views of the lumbar spine were perfor med. FINDIN GS: No fractu re or listhe sis of the lumbar spine. There is straig htenin g of normal lumbar lordos is, stable . There is mild degene rative disc diseas e and facet arthro reid. The obliqu e films do not demons trate spondy lolysi s. IMPRES ANTHONY: 1. No fractu re of the lumbar spine. Page 1 of 2 [facility] Bertha nunes Name: CRISTOFER BRADFORD Access ion #: [id number] Sex: M : 1984 4 Exam Date: 1:20 PM Exam Name: XR L SPINE 4V+ Admitt ing Diagno sis(es ): 2. Mild degene rative disc diseas e and facet arthro reid. Create d and electr onical ly signed by: Andre liang MD Signed Date: 3:42 PM (CT) Dictat ed by: Andre liang MD DD: 3:42 PM (CT) DT: 3:42 PM (CT) Page 2 of 2 [id number] [facility] (Im[facility]) [address] [place], [address], 12/09/2022 21:02:05 12/19/19 22 XR, thora cic spine , 3 view [facility] [address] [place] [address] [phone] Bertha nunes Name: CRISTOFER BRADFORD Access ion #: [id number] Sex: M : 1984 4 Locati on: RA2 Attend ing Physic flora: [facility] Physic flora: SHARLENE CHAPARRO Exam Date: 1:20 PM Exam Name: XR T SPINE 3V Admitt ing Diagno sis(es ): RADIOL OGY REPORT - FINAL EXAM: XR T SPINE 3V HISTOR Y: back pain 36-yea r-old male with back pain, no known injury . COMPAR FRANKIE: None availa ble TECHNI QUE: Three views of the thorac ic spine were perfor med. FINDIN GS: No fractu re or listhe sis are identi fied about the thorac ic spine. No signif icant degene rative change s. There is midtho racic mild dextro scolio sis. IMPRES ANTHONY: 1. No fractu re of the thorac ic spine. 2. Midtho racic dextro scolio sis. Page 1 of 2 [facility] Name: CRISTOFER BRADFORD ion #: [id number] Sex: M : 1984 4 Exam Date: 1:20 PM Exam Name: XR T SPINE 3V Admitt ing Diagno sis(es ): Create d and electr onical ly signed by: Andre liang MD Signed Date: 4:08 PM (CT) Dictat ed by: Andre liang MD DD: 4:08 PM (CT) DT: 4:08 PM (CT) Page 2 of 2 [id number] [facility] (Im[facility]) [address] [place], [address], 12/09/2022 21:02:05 12/19/19 22 12/18/2021 XR, lumba r spine No observ ation record ed. [id number] [facility] [address] [place], [address], 12/09/2022 21:02:05 12/19/19 22 12/18/2021 XR, thora cic spine No observ ation record ed. [id number] [facility] [address] [place], [address], 12/09/2022 21:02:05 02/06/20 22 02/04/2022 MRI, thora cic spine , w/o contr ast No observ ation record ed. [id number] Not Available 12/09/2022 21:02:05 02/21/20 22 02/19/2022 MRI, thora cic spine , w/ contr ast No observ ation record ed. MIGRATION. [facility] [address], [place], [address], 12/09/2022 21:02:05 02/25/20 22 02/19/2022 MRI, thora cic spine , w/o contr ast No observ ation record ed. MIGRATION. [facility] [address], [place], [address], 12/09/2022 21:02:05 04/27/20 22 04/27/2022 MRI, cervi junior spine , w/o contr ast No observ ation record ed. MIGRATION. [facility] [address], [place], [address], 12/09/2022 21:02:05 05/20/20 22 05/20/2022 XR, ribs, bilat eral No observ ation record ed. [id number], [place], [address], 12/09/2022 21:02:05 05/20/20 22 05/20/2022 CT, abdom en + pelvi s, w/o contr ast No observ ation record ed. [id number].[id number], [place], [address], 12/09/2022 21:02:05 Result Notes Documentation Provider Name and Address Organization Details Recorded Time Xr, Lumbosacral Spine, 4 Or More View : [address] [address] Patient Name: CRISTOFER FRAUSTO Sex: M : 1985 Location: [facility] Attending Physician: SHARLENE ALVARADO Ordering Physician: SHARLENE ALVARADO Exam Date: 12/18/2021 1:20 PM Exam Name: XR L SPINE 4V+ Admitting Diagnosis(es): RADIOLOGY REPORT - FINAL EXAM: XR L SPINE 4V+ HISTORY: back pain 36-year-old male with low back pain, no known injury. COMPARISON: Radiographs dated 02/22/2019. TECHNIQUE: Five views of the lumbar spine were performed. FINDINGS: No fracture or listhesis of the lumbar spine. There is straightening of normal lumbar lordosis, stable. There is mild degenerative disc disease and facet arthropathy. The oblique films do not demonstrate spondylolysis. IMPRESSION: 1. No fracture of the lumbar spine. Page 1 of 2 [facility] Patient Name: CRISTOFER FRAUSTO Sex: M : 1985 Exam Date: 12/18/2021 1:20 PM Exam Name: XR L SPINE 4V+ Admitting Diagnosis(es): 2. Mild degenerative disc disease and facet arthropathy. Created and electronically signed by: Andre Garcia MD Signed Date: 12/18/2021 3:42 PM (CT) Dictated by: Andre Garcia MD (CT) (CT) Page 2 of 2 Not Available [facility] 12/09/2022 21:02:06 Xr, Thoracic Spine, 3 View : [address] [address] Patient Name: CRISTOFER FRAUSTO Sex: M : 1985 Location: [facility] Attending Physician: SHARLENE ALVARADO Ordering Physician: SHARLENE ALVARADO Exam Date: 12/18/2021 1:20 PM Exam Name: XR T SPINE 3V Admitting Diagnosis(es): RADIOLOGY REPORT - FINAL EXAM: XR T SPINE 3V HISTORY: back pain 36-year-old male with back pain, no known injury. COMPARISON: None available TECHNIQUE: Three views of the thoracic spine were performed. FINDINGS: No fracture or listhesis are identified about the thoracic spine. No significant degenerative changes. There is midthoracic mild dextroscoliosis. IMPRESSION: 1. No fracture of the thoracic spine. 2. Midthoracic dextroscoliosis. Page 1 of 2 [facility] Patient Name: CRISTOFER FRAUSTO Sex: M : 1985 Exam Date: 12/18/2021 1:20 PM Exam Name: XR T SPINE 3V Admitting Diagnosis(es): Created and electronically signed by: Andre Garcia MD Signed Date: 12/18/2021 4:08 PM (CT) Dictated by: Andre Garcia MD (CT) (CT) Page 2 of 2 Not Available [facility] 12/09/2022 21:02:06 Problems Name Problem SNOMED Code Status Onset Date Resolution Date Notes Provider Name and Address Organization Details Recorded Time Preinfarction syndrome 2798562 Active Not Available [facility] 3 20:59:54 Lumbar radiculopathy 602708457 Active 2018 Not Available [facility] 3 20:59:54 Degeneration of lumbar intervertebra l disc 48754317 Active 2021 Not Available [facility] 3 20:59:54 Scoliosis of thoracic spine 330725264 Active 2021 Not Available [facility] 3 20:59:54 Lesion of thoracic spine 293676897 Active 2021 Not Available [facility] 3 20:59:54 Fatigue 22194875 Active 2022 Marta Hawkins MD [address], [address] [address], [place], [address] , [facility] 3 10:48:54 Upper respiratory infection 13355765 Active 2022 Marta Hawkins MD [address], [place], [address] , [facility] 3 07:00:53 Problem Notes None recorded. Medical Equipment None Reported. Allergies No known drug allergies Medications Name Sig Start Date Stop Date Status Note LastModified by Organization Details LastModified Time carisoprodo l 350 mg tablet Take 1 tablet 3 times a day by oral route. 02/22 completed Not Available Not Available Not Available cyclobenzap rine 10 mg tablet Take 1 tablet twice a day by oral route. 12/24 completed Not Available Not Available Not Available hydrocodone 5 mg-acetamin ophen 325 mg tablet 08/12 completed Not Available Not Available Not Available Kenalog 40 mg/mL suspension for injection Take 1 mL every day by injection route. 03/23 completed Not Available Not Available Not Available Kenalog 10 mg/mL suspension for injection In office injection administe red by the provider 12/18 completed NDC: 0003- 0494- 20 Not Available Not Available Not Available diclofenac sodium 75 mg tablet,kahlil yed release Take 1 tablet twice a day by oral route as needed for 30 days. 08/12 completed Not Available Not Available Not Available methylpredn isolone 4 mg tablets in a dose pack Use as directed 01/21 completed Not Available Not Available Not Available lidocaine (PF) 10 mg/mL (1 %) injection solution In office injection administe red by the provider 12/18 completed NDC: 0409- 4276- 17 Not Available Not Available Not Available Vitals Date Recorded Body mass index (BMI) Body height Oxygen saturation Oxygen saturation in Arterial blood by Pulse oximetry Heart rate Body temperature Body weight Systolic And Diastolic Provider Name and Address Organization Details Last Updated DateTime 2 26.7 kg/m2 166.37 cm 98 % 98 % 100 /min 97.4 [degF] 64764.5 6 g 118/76 mm[Hg] Not Available [facility] 3 20:59:32 Date Recorded Body mass index (BMI) Body height Body weight Provider Name and Address Organization Details Last Updated DateTime 01/20/2021 25.4 kg/m2 166.37 cm 29738.82 g Not Available [facility] 12/09/2022 20:59:34 Date Recorded Body mass index (BMI) Body height Oxygen saturation Oxygen saturation in Arterial blood by Pulse oximetry Heart rate Body temperature Body weight Systolic And Diastolic Provider Name and Address Organization Details Last Updated DateTime 2 25.4 kg/m2 166.37 cm 99 % 99 % 102 /min 96.9 [degF] 05868.8 2 g 114/72 mm[Hg] Not Available [facility] 3 20:59:32 Date Recorded Body mass index (BMI) Body height Oxygen saturation Oxygen saturation in Arterial blood by Pulse oximetry Heart rate Body temperature Body weight Systolic And Diastolic Provider Name and Address Organization Details Last Updated DateTime 2 24.4 kg/m2 166.37 cm 97 % 97 % 84 /min 98.8 [degF] 31841.2 6 g 116/76 mm[Hg] Not Available [facility] 3 20:59:32 Date Recorded Body height Body mass index (BMI) Body weight Body temperature Heart rate Oxygen saturation Oxygen saturation in Arterial blood by Pulse oximetry Systolic And Diastolic Provider Name and Address Organization Details Last Updated DateTime 3 167.64 cm 24.5 kg/m2 32306.0 4 g 98 [degF] 131 /min 98 % 98 % 132/72 mm[Hg] Digna Cannon MA [place] - [facility] [place] [employer] 3 10:36:36 Social History Question Answer Notes LastModified by goviralizat [employer]allyhood Details LastModified Time Tobacco Smoking Status Never Smoker Not Available [facility] 12/09/2022 20:58:13 What Is Your Level Of Caffeine Consumption? Occasional [id number] Information not available 12/09/2022 How Much Tobacco Do You Chew? None [id number] Information not available 12/09/2022 Which Illicit Or Recreational Drugs Have You Used? No [id number] Information not available 12/09/2022 Sex: Male Functional Status Question Answer Note LastModified by [email or web address] Details LastModified Time What is your level of alcohol consumption? Moderate [id number] Information not available 12/09/2022 Mental Status None recorded. Family History Relationship Description Onset Age of this Age Resolved Age Notes LastModified by Organization Details LastModified Time Mother Malignant tumor of breast [id number] Not available 12/09/2022 20:58:22 Medical History Condition Response ALLERGIES/HAYFEVER Y BACK / NECK PROBLEMS Y EAR OR HEARING PROBLEMS Y Past Encounters Encounter ID Performer Location Encounter Start Date Encounter Closed Date Diagnosis/Indication Diagnosis SNOMED-CT Code Diagnosis ICD10 Code Diagnosis Note [id number] [facility] [address] [place] [address] 12/24/2020 00:00:00 12/25/2020 08:22:29 [id number] DANUTA De Los Santos [facility] [place] [address] [facility] [address] [place] [address] 01/20/2021 00:00:00 01/20/2021 13:27:11 [id number] [facility] [address] [place] [address] 12/18/2021 00:00:00 12/18/2021 14:15:37 [id number] Marta Hawkins MD [address] [place] [address] 01/21/2022 00:00:00 01/21/2022 16:15:03 [id number] [facility] [address] [place] [address] 06/08/2022 00:00:00 06/08/2022 14:30:56 [id number] Marta Hawkins MD [address] [place] [address] 08/12/2023 10:23:23 08/12/2023 10:51:58 Hyperlipidemia screening 584625172 Z13.220 Fatigue 38399529 R53.83 Upper resp iratory infection 20445930 J06.9 SxRx simply saline nasal spray and otc cold remedies Health Concerns Section Related Observation LastModified by Organization Detai ls LastModified Time None Recorded Concern Status LastModified by Organization Details LastModified Time None Recorded Advance Directives Directive None Recorded Payers Insurance Date Sequence Insurance Name Policy Number Policy Delgado Covered Member ID Delgado Member ID Guarantor Name 08/20/2023 1 AETLUKAS (O) [id number] Cristofer Frausto [id number] Cristofer Frausto 08/12/2023 [employer] Cristofer Frausto Notes Date Note Type Note Provider Name and Address Organization Details Recorded Time 08/12/2023 text/html Here today to establish care. Has a mass on spine. Had spinal angiogram and then myelogram. The neurologist did not know what this was. Had Back pain and going through [facility]. It hurts every once in awhile. But no need to treat the pain. Has to do another MRI and will have f/u with neurologist. Has a cough x 1 month. His voice is raspy and drainage down throat. Marta Hawkins MD [address] [place] [address], [facility] [address], [place], [address], [place] - [facility] [employer] 08/13/2023 07:02:22
[2025-05-04 12:22] VITALS: BP 152/88; PULSE 87; RESP 15; TEMP 36.9; O2SAT 100
--- OUTSIDE RECORDS SUMMARY | 2025-05-04 14:12 | XMS_ITS | Encounter Summary ---
Author Organization [facility] Healthcare Address [address] [place] [address] Care Team Providers Care Librarian Special Collections Name Role Phone Julianna Daniels NP Primary Care Provider [phone] Encounter Details Date Type Department Care Team (Latest Contact Info) Description 03/29/2025 Results Follow-Up [facility] Medical Group Primary Care at [address] [address] Julianna Daniels NP [address] [place] [address] [address] [place] [address] Thyroid Function [place], Lipid panel, Comprehensive metabolic panel, Additional followed-up [...] on file 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
--- OUTSIDE RECORDS SUMMARY | 2025-05-04 14:12 | XMS_ITS | Clinical Summary ---
Author Organization [facility] [address] [place] Address [address] [place] [address] Care Team Providers Care Painter Rough Name Role Phone Julianna Daniels NP Primary Care Provider [phone] Allergies No known active allergies Medications acetaminophen [...] panel; Future Lipid panel; Future Thyroid Function [place]; Future BMI 25.0-25.9,adult 03/27/2025 Assessment & Plan [...] Encounters Date Type Department Care Team Description 05/04/2025 Telephone [facility] Medical [facility] Care [place] [address] [place] [address] Negra Ashton NP 03/29/2025 Results Follow-Up [facility] Primary Care at [address] [address] Julianna Daniels NP Thyroid Function [place], Lipid panel, Comprehensive metabolic panel, Additional followed-up results: 3 03/27/2025 9:45 AM CDT - 03/27/2025 11:59 PM CDT Hospital Encounter [address] [address] Wellness examination; Screening for thyroid disorder; Screening, lipid; Encounter for screening examination for impaired glucose regulation and diabetes mellitus; Screening, anemia, deficiency, iron Discharge Disposition: Discharge to home or self care 03/27/2025 9:45 AM CDT Lab [facility] Medical Group Outpatient Lab at [address] [address] 03/27/2025 9:00 AM CDT Office Visit [facility] Primary Care at [address] [address] Julianna Daniels NP BMI 25.0-25.9,adult (Primary Dx); [...] on file 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 Gender Identity Not on file Sexual Orientation Not on file 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 Not on file [...] this topic Medical Devices Implanted Type Area Washery Engineer Device Identifier Shelf Expiration Date Model / Serial / Lot [employer] Angio-Seal Vip 6fr Closere Device [id number] - [id number] Implanted:Qty: 1 on 08/14/2022 at [facility] [employer] 05/10/2023 [id number] / / [id number] Procedures Procedure Name Priority Date/Time Associated Diagnosis [...] NP LAB BLOOD ORDERABLES Final Re sult [facility] [address] Department [place] [address] * (ABNORMAL) Differential, auto (03/27/2025 9:45 AM CDT) Neutrophil abs 5.16 1.50 - 6.50 K/cumm Imm gran abs 0.04 0.00 - 0.10 K/cumm [facility] Lymphocyte abs 1.45 0.80 - 3.30 K/cumm [facility] Monocyte abs 0.99(H) 0.20 - 0.80 K/cumm [facility] Eosinophil abs 0.47 0.00 - 0.50 K/cumm [facility] Basophil abs 0.05 0.00 - 0.10 K/cumm [facility] Neutrophil pct 63.2 % [facility] Comment: Interpretive Data Percent cell count reference ranges are not reported, since discordance with absolute values may lead to misinterpretation of CBC data. Current Interpretive Data was last revised on 2018. Imm gran pct 0.5 % [facility] Comment: Interpretive Data Percent cell count reference ranges are not reported, since discordance with absolute values may lead to misinterpretation of CBC data. Current Interpretive Data was last revised on 2018. Lymphocyte pct 17.8 % [facility] Comment: Interpretive Data Percent cell count reference ranges are not reported, since discordance with absolute values may lead to misinterpretation of CBC data. Current Interpretive Data was last revised on 2018. Monocyte pct 12.1 % [facility] Comment: Interpretive Data Percent cell count reference ranges are not reported, since discordance with absolute values may lead to misinterpretation of CBC data. Current Interpretive Data was last revised on 2018. Eosinophil pct 5.8 % [facility] Comment: Interpretive Data Percent cell count reference ranges are not reported, since discordance with absolute values may lead to misinterpretation of CBC data. Current Interpretive Data was last revised on 2018. Basophil pct 0.6 % [facility] Comment: Interpretive Data Percent cell count reference ranges are not reported, since discordance with absolute values may lead to misinterpretation of CBC data. Current Interpretive Data was last revised on 2018. Blood 03/27/2025 9:45 AM CDT 03/27/2025 9:04 PM CDT Julianna Jeremiah LAB BLOOD ORDERABLES Final Re sult Performing Organization Address [facility] de Phone Number [facility] [address] [facility] [place] [address] * Thyroid Function [place] (03/27/2025 9:45 AM CDT) Pathologist [facility] TSH 1.87 0.30 - 4.20 mcIUnit/mL Blood 03/27/2025 9:45 AM CDT 03/27/2025 9:04 PM CDT [facility] BLOOD ORDERABLES Final Re sult Performing Organization Address [facility] de Phone Number [facility] [address] Department [place] [address] * CBC with auto differential (03/27/2025 9:45 AM CDT) WBC 8.16 3.80 - 9.90 K/cumm Hgb 15.6 13.0 - 17.5 g/dL [facility] Hct 48.1 38.9 - 50.3 % [facility] Plt 259 150 - 400 K/cumm [facility] MPV 10.1 9.1 - 12.3 fL [facility] RBC 5.16 4.30 - 5.80 M/cumm [facility] MCV 93.2 81.3 - 96.4 fL [facility] MCH 30.2 27.1 - 33.3 pg [facility] MCHC 32.4 32.3 - 35.7 g/dL [facility] RDW CV 12.6 11.1 - 14.9 % [facility] RDW SD 43.4 35.7 - 48.1 fL [facility] NRBC abs 0.00 0.00 - 0.01 K/cumm [facility] Blood 03/27/2025 9:45 AM CDT 03/27/2025 9:04 PM CDT us Julianna Daniels NP LAB BLOOD ORDERABLES Final Re sult [facility] [address] Department [place] [address] * Lipid panel (03/27/2025 9:45 AM CDT) [...] revised on 2018. Triglycerides 92 <=149 mg/dL [facility] Comment: Interpretive Data Ages < or = [...] 2004;110:227 3. Charles Remy al. SIMRAN Cardiol. 2020 February 08;5(5):540-548. doi: [...] been fasting for 8 hours or more?->Yes us Julianna Daniels NP LAB BLOOD ORDERABLES Final Re sult [facility] [address] Department [place] [address] * Comprehensive metabolic panel (03/27/2025 9:45 AM [...] classification and Diagnosis of Diabetes Diabetes Care 2021; 46: S19-S40. Current interpretive data was last [...] CDT 03/27/2025 9:04 PM CDT Julianna Daniels LINER MACHINE OPERATOR HELPER LAB BLOOD ORDERABLES Final Re sult [facility] [address] Department [place] [address] from Last 3 Months Insurance [facility] Advance Directives For more information, please contact: [phone] * Full Code (Latest Code Status on File) Date Activated Date Inactivated Comments 08/14/2022 10:34 AM 08/15/2022 4:50 AM Care Teams Painter Rough Relationship Specialty Start Date End Date Julianna Daniels NP [address] [facility] [address] [place] [address] PCP - General Internal Medicine 03/27/25
--- OUTSIDE RECORDS SUMMARY | 2025-05-04 14:12 | XMS_ITS | Encounter Summary ---
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
--- OUTSIDE RECORDS SUMMARY | 2025-05-04 14:12 | XMS_ITS | Referral Summary ---
Author Organization [facility] 8 [facility] Address [address] [place] [address] Care Team Providers Care Mica Patcher Name Role Phone Julianna Daniels NP Primary Care Provider [phone] Encounters Date Type Department Care Team Description 05/04/2025 Telephone [facility] Care at [place] [address] [place] [phone] Negra Ashton NP 03/29/2025 Results Follow-Up [facility] Primary Care at [address] [phone] Julianna Daniels NP Thyroid Function [place], Lipid panel, Comprehensive metabolic panel, Additional followed-up results: 3 03/27/2025 9:45 AM CDT - 03/27/2025 11:59 PM [place] [address] Wellness examination; Screening for thyroid disorder; Screening, lipid; Encounter for screening examination for impaired glucose regulation and diabetes mellitus; Screening, anemia, deficiency, iron Discharge Disposition: Discharge to home or self care 03/27/2025 9:45 AM CDT Lab [facility] Outpatient Lab at [address] [phone] 03/27/2025 9:00 AM CDT Office Visit [facility] Primary Care at [address] [phone] Julianna Daniels NP BMI 25.0-25.9,adult (Primary Dx); [...] panel; Future Lipid panel; Future Thyroid Function [place]; Future BMI 25.0-25.9,adult 03/27/2025 Assessment & Plan [...] on file 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 Gender Identity Not on file Sexual Orientation Not on file 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 Not on file Not [...] on file Medical Devices Implanted Type Area Special Officer Automat Device Identifier Shelf Expiration Date Model / Serial / Lot [employer] Angio-Seal Vip 6fr Closere Device [id number] - [id number] Implanted:Qty: 1 on 08/14/2022 at [facility] [employer] 05/10/2023 [id number] / / [id number] Procedures Procedure Name Priority Date/Time Associated Diagnosis Comments EGFR Routine 03/27/2025 9:45 AM CDT Wellness examination Encounter for screening examination for impaired glucose regulation and diabetes mellitus DIFFERENTIAL AUTO Routine 03/27/2025 9: 45 AM CDT Wellness examination Screening, anemia, deficiency, [...] of Race in Diagnosing Kidney Disease, JASN 202). The CKD-EPI equation should not be used for patients with unstable renal function and has not been validated in children and those over 70. Current interpretive data was last reviewed 2021. Blood 03/27/2025 9:45 AM CDT 03/27/2025 9:46 PM CDT us Julianna Daniels NP LAB BLOOD ORDERABLES Final Re sult [facility] [address] [place] [address] * (ABNORMAL) Differential, auto (03/27/2025 9:45 AM CDT) Neutrophil abs 5.16 1.50 - 6.50 K/cumm Imm gran abs 0.04 0.00 - 0.10 K/cumm [facility] Lymphocyte abs 1.45 0.80 - 3.30 K/cumm [facility] Monocyte abs 0.99(H) 0.20 - 0.80 K/cumm [facility] Eosinophil abs 0.47 0.00 - 0.50 K/cumm [facility] Basophil abs 0.05 0.00 - 0.10 K/cumm [facility] Neutrophil pct 63.2 % [facility] Comment: Interpretive Data Percent cell count reference ranges are not reported, since discordance with absolute values may lead to misinterpretation of CBC data. Current Interpretive Data was last revised on 2018. Imm gran pct 0.5 % [facility] Comment: Interpretive Data Percent cell count reference ranges are not reported, since discordance with absolute values may lead to misinterpretation of CBC data. Current Interpretive Data was last revised on 2018. Lymphocyte pct 17.8 % [facility] Comment: Interpretive Data Percent cell count reference ranges are not reported, since discordance with absolute values may lead to misinterpretation of CBC data. Current Interpretive Data was last revised on 2018. Monocyte pct 12.1 % [facility] Comment: Interpretive Data Percent cell count reference ranges are not reported, since discordance with absolute values may lead to misinterpretation of CBC data. Current Interpretive Data was last revised on 2018. Eosinophil pct 5.8 % [facility] Comment: Interpretive Data Percent cell count reference ranges are not reported, since discordance with absolute values may lead to misinterpretation of CBC data. Current Interpretive Data was last revised on 2018. Basophil pct 0.6 % [facility] Comment: Interpretive Data Percent cell count reference ranges are not reported, since discordance with absolute values may lead to misinterpretation of CBC data. Current Interpretive Data was last revised on 2018. Blood 03/27/2025 9:45 AM CDT 03/27/2025 9:04 PM CDT us Julianna Daniels NP LAB BLOOD ORDERABLES Final Re sult [facility] [address] [place] [address] * Thyroid Function [place] (03/27/2025 9:45 AM CDT) Pathologist [facility] TSH 1.87 0.30 - 4.20 mcIUnit/mL Blood 03/27/2025 9:45 AM CDT 03/27/2025 9:04 PM CDT Julianna Daniels GUEST SERVICE AGENT LAB BLOOD ORDERABLES Final Re sult Performing Organization Address [facility]/ZIP Co de Phone Number [facility] [address] [place] [address] * CBC with auto differential (03/27/2025 9:45 AM CDT) Pathologist [facility] WBC 8.16 3.80 - 9.90 K/cumm Hgb [...] ORDERABLES Final Re sult Performing Organization Address [facility]/ZIP Co de Phone Number [facility] NOR[facility] [address] Department [employer] [place], [place] [id number] * Lipid panel (03/27/2025 9:45 AM CDT) [...] NCEP Expert Panel. Circulation 2004;110:227 3. Charles Rashid et al. SIMRAN Cardiol. 2020 February 08;5(5):540-548. doi: 10.1001/jamacardio.2020.0013 Current Interpretive Data was last revised on 2024. Non-HDL Cholesterol 113 mg/dL [facility] Comment: Interpretive Data Ages < or [...] BLOOD ORDERABLES Final Re sult [facility] [address] [place] [address] * Comprehensive metabolic panel (03/27/2025 9:45 AM [...] NP LAB BLOOD ORDERABLES Final Re s[facility] [address] [place] [address] from Last 3 Months Insurance [facility] PL[facility] H[facility]/PPO Address: [address] [address] [place] [address] [facility] PPO [facility] PPO Advance Directives For more information, please contact: [phone] * Full Code (Latest Code Status on File) Date Activated Date Inactivated Comments 08/14/2022 10:34 AM 08/15/2022 4:50 AM Care Teams Mica Patcher Relationship Specialty Start Date End Date Julianna Daniels NP [address] [facility] [address] [place] [address] PCP - General Internal Medicine 03/27/25
--- OUTSIDE RECORDS SUMMARY | 2025-05-04 14:12 | XMS_ITS | Clinical Summary ---
Author Organization [facility] Address [address] [place] [address] Care Team Providers Care Medical Secretary Receptionist Name Role Phone Unavailable Primary Care Provider [...] Comments Blood Pressure 112/56 09/15/2012 5:34 PM QUALITY ASSURANCE MONITOR BODY Pulse 79 09/15/2012 5:34 PM QUALITY ASSURANCE MONITOR BODY Temperature - - Respiratory Rate - - Oxygen Saturation - - Inhaled Oxygen Concentration - - Weight 69.9 kg (154 lb) 09/15/2012 5:34 PM QUALITY ASSURANCE MONITOR BODY Height - - Body Mass Index - [...] complete this topic [place] [id number] [employer]
--- NOTE | 2025-05-04 15:10 | ED_ITS ---
HPI - General Adult General Chief complaint: Unspecified <Anneliese Calvo MD - Last Filed: 05/05/25 10:21> Stated complaint: jaw injury <Anneliese Calvo MD - Last Filed: 05/05/25 10:21> Time Seen by Provider: 05/04/25 14:02 <Anneliese Calvo MD - Last Filed: 05/05/25 10:21> Source: patient and RN notes reviewed <Anneliese Calvo MD - Last Filed: 05/05/25 10:21> Mode of arrival: ambulatory <Anneliese Calvo MD - Last Filed: 05/05/25 10:21> Limitations: no limitations <Anneliese Calvo MD - Last Filed: 05/05/25 10:21> History of Present Illness HPI narrative: THis is a 39 year old male who presents for evaluation of left jaw pain. He states yesterday his 4 year old accidentally hit is left jaw with his knee. He has been having moderate pain with eating and opening his mouth. He took tylenol at 5 30 this morning. <Anneliese Calvo MD - Last Filed: 05/05/25 10:21> Onset (ago): day(s) (1) <Anneliese Calvo MD - Last Filed: 05/05/25 10:21> Related Data Home medications: Home Medications ?Medication ?Instructions ?Recorded ?Confirmed ?Last Taken ?Type cyclobenzaprine 10 mg tablet 10 mg PO TID PRN Pain 08/29/19 08/29/19 08/29/19 04:00 History <Anneliese Calvo MD - Last Filed: 05/05/25 10:21> Allergies/adverse reactions: Allergies Allergy/AdvReac Type Severity Reaction Status Date / Time No Known Allergies Allergy Mild Verified 05/04/25 13:47 <Anneliese Calvo MD - Last Filed: 05/05/25 10:21> [facility] Past Medical History Medical History: Medical History No pertinent past medical history <Anneliese Calvo MD - Last Filed: 05/05/25 10:21> Surgical History Surgical History: Surgical History No pertinent past surgical history <Anneliese Calvo MD - Last Filed: 05/05/25 10:21> Social History Social History: Social History Smoking status: Never smoker Alcohol use details: Social alcohol use <Anneliese Calvo MD - Last Filed: 05/05/25 10:21> Exam Const: General: cooperative and alert <Anneliese aClvo MD - Last Filed: 05/05/25 10:21> Nutritional Appearance: average body habitus <Anneliese Calvo MD - Last Filed: 05/05/25 10:21> Orientation/consciousness: patient oriented x3 <Anneliese Calvo MD - Last Filed: 05/05/25 10:21> Limitations: no limitations <Anneliese Calvo MD - Last Filed: 05/05/25 10:21> HENMT: Head: normocephalic and atraumatic <Anneliese Calvo MD - Last Filed: 05/05/25 10:21> Ears: external ears normal <Anneliese Calvo MD - Last Filed: 05/05/25 10:21> Face/Nose/Sinus: Normal external nose present <Anneliese Calvo MD - Last Filed: 05/05/25 10:21> Face and sinus: face symmetric and other (patient with silva, TTP to left mandible, no noticeable swelling or deform) <Anneliese Calvo MD - Last Filed: 05/05/25 10:21> Mouth: Yes Normal oral and palatal mucosa present, Yes lip normal, Yes tongue normal, Yes oropharynx normal and Yes moist mucous membranes <Anneliese Calvo MD - Last Filed: 05/05/25 10:21> Teeth and gingiva: dentition normal and gingiva normal <Anneliese Calvo MD - Last Filed: 05/05/25 10:21> Throat: posterior oropharynx normal, tonsils normal and uvula midline <Anneliese Calvo MD - Last Filed: 05/05/25 10:21> Course Reevaluation(s) Reevaluation #1: Care turned over to Dr. Borden. Kelliehanny pending xray of his mandible to assess for fracture <Anneliese Calvo MD - Last Filed: 05/05/25 10:21> Date: 05/04/25 <Anneliese Calvo MD - Last Filed: 05/05/25 10:21> Time: 15:13 <Anneliese Calvo MD - Last Filed: 05/05/25 10:21> Vital Signs Vital signs: Vital Signs Temperature 98.4 F 05/04/25 12:22 Pulse Rate 87 05/04/25 12:22 Respiratory Rate 15 05/04/25 12:22 Blood Pressure 152/88 H 05/04/25 12:22 Pulse Oximetry 100 05/04/25 12:22 Oxygen Delivery Room Air 05/04/25 12:22 Temperature 98.4 F 05/04/25 12:22 Pulse Rate 87 05/04/25 12:22 Respiratory Rate 15 05/04/25 12:22 Blood Pressure 152/88 H 05/04/25 12:22 Pulse Oximetry 100 05/04/25 12:22 Oxygen Delivery Room Air 05/04/25 12:22 <Anneliese Calvo MD - Last Filed: 05/05/25 10:21> Vital Signs Temperature 98.4 F 05/04/25 12:22 Pulse Rate 87 05/04/25 12:22 Respiratory Rate 15 05/04/25 12:22 Blood Pressure 152/88 H 05/04/25 12:22 Pulse Oximetry 100 05/04/25 12:22 Oxygen Delivery Room Air 05/04/25 12:22 Temperature 98.4 F 05/04/25 12:22 Pulse Rate 87 05/04/25 12:22 Respiratory Rate 15 05/04/25 12:22 Blood Pressure 152/88 H 05/04/25 12:22 Pulse Oximetry 100 05/04/25 12:22 Oxygen Delivery Room Air 05/04/25 12:22 <Irene Borden MD - Last Filed: 05/04/25 17:15> Medical Decision Making MDM Narrative Medical decision making narrative: PATIENT WAS SIGNED OUT TO ME AT SHIFT CHANGE WAITING FOR X-RAY OF THE MANDIBLE RESULTS. X-RAY SHOWED NO ACUTE OSSEOUS ABNORMALITY. DIAGNOSIS CONTUSION TYLENOL, IBUPROFEN NEEDED THE PT WAS DISCHARGED TO HOME.THE PT,S CONDITION UPON DISCHARGE WAS FAIR,EDUCATION WAS PROVIDED TO THE PT IN REFERENCE TO THE FINAL IMP RESSION,DISCHARGE STUDY RESULTS,TREATMENT,PROGNOSIS AND NEED FOR FOLLOW UP . <Irene Borden MD - Last Filed: 05/04/25 17:15> Vital Signs Vital Signs: Vital Signs Temperature 98.4 F 05/04/25 12:22 Pulse Rate 87 05/04/25 12:22 Respiratory Rate 15 05/04/25 12:22 Blood Pressure 152/88 H 05/04/25 12:22 Pulse Oximetry 100 05/04/25 12:22 Oxygen Delivery Room Air 05/04/25 12:22 Temperature 98.4 F 05/04/25 12:22 Pulse Rate 87 05/04/25 12:22 Respiratory Rate 15 05/04/25 12:22 Blood Pressure 152/88 H 05/04/25 12:22 Pulse Oximetry 100 05/04/25 12:22 Oxygen Delivery Room Air 05/04/25 12:22 <Anneliese Calvo MD - Last Filed: 05/05/25 10:21> Vital Signs Temperature 98.4 F 05/04/25 12:22 Pulse Rate 87 05/04/25 12:22 Respiratory Rate 15 05/04/25 12:22 Blood Pressure 152/88 H 05/04/25 12:22 Pulse Oximetry 100 05/04/25 12:22 Oxygen Delivery Room Air 05/04/25 12:22 Temperature 98.4 F 05/04/25 12:22 Pulse Rate 87 05/04/25 12:22 Respiratory Rate 15 05/04/25 12:22 Blood Pressure 152/88 H 05/04/25 12:22 Pulse Oximetry 100 05/04/25 12:22 Oxygen Delivery Room Air 05/04/25 12:22 <Irene Borden MD - Last Filed: 05/04/25 17:15> Imaging Data Radiologist's impression: Impressions Mandible X-Ray 05/04/25 16:10 IMPRESSION: 1. No acute osseous abnormality. <Irene Borden MD - Last Filed: 05/04/25 17:15> Discharge Plan Discharge Clinical Impression: Contusion of left jaw region <Anneliese Calvo MD - Last Filed: 05/05/25 10:21> Patient Disposition: Home <Anneliese Calvo MD - Last Filed: 05/05/25 10:21> Condition: Stable <Anneliese Calvo MD - Last Filed: 05/05/25 10:21> Instructions: Contusion in Adults (ED) <Anneliese Calvo MD - Last Filed: 05/05/25 10:21> Additional Instructions: RETURN IF SYMPTOMS ARE WORSENING , CALL YOUR FAMILY PHYSICIAN FOR APPOINTMENT, TAKE TYLENOL, IBUPROFEN NEEDED FOR ACHES AND PAIN, CONTINUE HOME MEDICATIONS. <Anneliese Calvo MD - Last Filed: 05/05/25 10:21> Patient Language: [place] <Anneliese Calvo MD - Last Filed: 05/05/25 10:21> Prescriptions: No Action cyclobenzaprine 10 mg Tablet 10 mg PO TID PRN (Reason: Pain) TaperDex 1.5 mg (27 tabs) tablets,dose pack See Rx Instructions .ROUTE .COMPLEX Qty: 27 0RF Rx Instructions: orally per package directions hydrocodone-acetaminophen 5-325 mg tablet 1 tablet PO Q6H PRN (Reason: pain) Qty: 10 0RF hydrocodone-acetaminophen 5-325 mg tablet 1 tablet PO Q8H PRN (Reason: pain) Qty: 15 0RF <Anneliese Calvo MD - Last Filed: 05/05/25 10:21> Follow-up/Referrals: Jeremiah,Julianna Rainey APRN [Primary Care Provider] - <Anneliese Calvo MD - Last Filed: 05/05/25 10:21>
== END 2025-05-04 17:33 | disposition home or self-care (01) ==
PROVIDERS: Emergency Provider Emergency Medicine; PCP Nurse Practitioner
DX: S00.83XA Contusion of other part of head, initial encounter (principal); W51.XXXA Accidental striking against or bumped into by another person, initial encounter
CPT/HCPCS: 70110; 99283